=== PATIENT | male | born 1945 | race Caucasian/White ===

== ENCOUNTER 2017-11-16 09:45 | Outpatient (CLI) | payer MEDICARE, OTHER, SELFPAY | END 2017-11-16 10:00 | disposition home or self-care (01) | LOC: INF 09:57 | PROVIDERS: Family Provider Family Medicine; PCP Family Medicine; Visit Provider Internal Medicine | DX: Z45.2 Encounter for adjustment and management of vascular access device (principal) | CPT/HCPCS: 96523; J1642 ==

== ENCOUNTER 2017-12-13 08:44 | Outpatient (CLI) | payer MEDICARE, OTHER, SELFPAY ==
[2017-12-13 09:08] VITALS: BMI 29.5
[2017-12-13 10:14] LABS: Basophils # 0.1 K/mm3 (0-0.2); Basophils % 1.1 % (0.1-2.0); Eosinophils # 0.3 K/mm3 (0.0-0.4); Eosinophils % 4.1 % (0.1-12.0); Hematocrit 38.1 % (42.0-52.0); Hemoglobin 13.1 g/dL (14.1-18.0); Lymphocytes # 1.7 K/mm3 (0.7-4.5); Lymphocytes % 27.7 K/mm3 (10-50); Mean Corpuscular HGB Conc 34.3 g/dL (31.8-35.4); Mean Corpuscular Hemoglobin 29.9 pg (27.0-31.2); Mean Platelet Volume 7.3 fl (7.4-10.4); Monocytes # 0.5 K/mm3 (0.1-1.0); Monocytes % 8.7 % (1.7-9.3); Neutrophils # 3.6 K/mm3 (1.8-7.8); Neutrophils % 58.4 % (37.0-80.0); Platelet Count 143 K/mm3 (142-424); Red Blood Count 4.38 M/mm3 (4.60-6.20); Red Cell Distribution Width 14.6 % (11.5-17.5); White Blood Count 6.2 K/mm3 (4.8-10.8)
[2017-12-13 10:16] LABS: Chloride 104 mmol/L (98-107); Potassium 3.7 mmoL/L (3.5-5.1); Sodium 139 mmol/L (136-145)
[2017-12-13 10:17] LABS: Alanine Aminotransferase 25 U/L (12-78); Albumin/Globulin Ratio 1.2 (1.1-1.8); Anion Gap 13.7 mEq/L (5-15); Aspartate Amino Transferase 19 U/L (15-37); Bilirubin,Total 0.4 mg/dL (0.2-1.0); Blood Urea Nitrogen 21 mg/dL (7-18); Calcium 9.2 mg/dL (8.5-10.1); Carbon Dioxide 25 mmol/L (21.0-32.0); Creatinine Clearance Estimated 58 mL/min (0-300); Creatinine,Serum 1.38 mg/dL (0.70-1.30); Estimated Glomerular Filt Rate 51 ml/min (>60); GFR (African American) 62 ML/MIN (>60); Globulin 3.3 gm/dl (1.3-3.2); Glucose 201 mg/dL (74-106); Total Protein,Serum 7.3 gm/dL (6.4-8.2)
[2017-12-13 10:19] LABS: Alkaline Phosphatase 58 U/L (46-116)
--- NOTE | 2017-12-13 11:08 | CT_ITS ---
CT abdomen pelvis w con CLINICAL INDICATION: Follow-up lymphoma ITS.REASON: LYMPHOMA ORDERING PHYSICIAN: Dash Rizo MD PATIENT AGE: 72 years COMPARISON: 09/22/2016 TECHNIQUE: Axial images obtained with sagittal and coronal reformats. All CT scans at the facility use one or more dose reduction, viz: automated exposure control; ma/kV adjustment per patient size (including targeted exams where dose is matched to indication; i.e. head); or iterative reconstruction technique. PROCEDURE: Oral Contrast: Redicat IV Contrast: 75 mL's of Isovue-370. FINDINGS: The liver, spleen, adrenal glands, and pancreas have an unremarkable appearance. There are multiple gallstones. No hydronephrosis or renal mass. 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 Small nodes are present within the central mesenteric axis and do not appear significantly changed with the largest node measuring up to 22 x 13 mm in the right lower quadrant. No retroperitoneal adenopathy. There is diverticulosis of the descending and sigmoid colon. There is mild thickening of the bowel wall in the left lower quadrant of the junction of the descending and sigmoid colon. This may only be related to nondistention. No stranding of the pericolic fat noted at this area. Irregular bladder wall appears slightly thickened but could be due to nondistention. No pelvic mass or abnormal fluid collection. No intestinal obstruction or free air. No acute bony anomalies. IMPRESSION: 1. Overall stable CT appearance of the abdomen and pelvis. 2. Stable small lymph nodes in the mesentery's and right lower quadrant. 3. Cholelithiasis
--- NOTE | 2017-12-13 11:08 | CT_ITS ---
CT chest w con HISTORY: Follow-up lymphoma ITS.REASON: LYMPHOMA ORDERING PHYSICIAN: Dash Rizo MD PATIENT AGE: 72 years COMPARISON: 06/24/2017 TECHNIQUE: Axial images obtained following the administration of 75 mL of Isovue 370 . Sagittal, and coronal reformatted images are also generated and reviewed. All CT scans at the facility use one or more dose reduction, viz: automated exposure control; ma/kV adjustment per patient size (including targeted exams where dose is matched to indication; i.e. head); or iterative reconstruction technique. FINDINGS: There are no mediastinal or hilar mass evident. No mediastinal or hilar adenopathy. There is mild uniform thickening of the esophagus throughout the length of the thorax. Esophagitis is considered. Right subclavian Mediport catheter remains in place No effusions. Previously noted irregular opacity in the right lung base not significant changed and may be due to an area of postinflammatory fibrosis. A calcified granulomas present in the right lung base medially. A 3 mm nodule present in the right lung base posteriorly adjacent to some fibrotic changes. This was in previously noted area of pneumonia. Probably not significantly changed. Continued follow-up may confirm stability. There are degenerative changes in the thoracic spine. IMPRESSION: 1. Overall stable CT appearance of the chest compared to 06/24/2017 with postinflammatory scarring. 2. No evidence of recurrent adenopathy. 3. Diffuse thickening of the esophagus which may be related to esophagitis
== END 2017-12-13 11:30 | disposition home or self-care (01) ==
PROVIDERS: Family Provider Family Medicine; PCP Family Medicine; Visit Provider Internal Medicine
DX: C85.93 Non-Hodgkin lymphoma, unspecified, intra-abdominal lymph nodes (principal)
CPT/HCPCS: 71260; 74177; 80053; 85025; J1642; Q9967

== ENCOUNTER 2018-02-15 08:37 | Outpatient (CLI) | payer MEDICARE, OTHER, SELFPAY | END 2018-02-15 08:50 | disposition home or self-care (01) | LOC: INF 08:37 | PROVIDERS: Family Provider Family Medicine; PCP Family Medicine; Visit Provider Internal Medicine | DX: Z45.2 Encounter for adjustment and management of vascular access device (principal); C85.90 Non-Hodgkin lymphoma, unspecified, unspecified site | CPT/HCPCS: 96523; J1642 ==

== ENCOUNTER 2018-03-22 08:30 | Outpatient (CLI) | payer MEDICARE, OTHER, SELFPAY | END 2018-03-22 12:40 | disposition home or self-care (01) | LOC: INF 08:39 | PROVIDERS: Family Provider Family Medicine; PCP Family Medicine; Visit Provider Internal Medicine | DX: Z45.2 Encounter for adjustment and management of vascular access device (principal); C85.90 Non-Hodgkin lymphoma, unspecified, unspecified site | CPT/HCPCS: 96374; J1642 ==

== ENCOUNTER 2018-04-21 08:30 | Outpatient (CLI) | payer MEDICARE, OTHER, SELFPAY ==
[2018-04-21 08:39] VITALS: BMI 29.7
[2018-04-21 09:12] LABS: Basophils # 0.1 K/mm3 (0-0.2); Basophils % 1.1 % (0.1-2.0); Eosinophils # 0.2 K/mm3 (0.0-0.4); Hemoglobin 13.4 g/dL (14.1-18.0); Lymphocytes # 1.7 K/mm3 (0.7-4.5); Lymphocytes % 26.2 K/mm3 (10-50); Mean Corpuscular HGB Conc 34.2 g/dL (31.8-35.4); Mean Corpuscular Hemoglobin 29.7 pg (27.0-31.2); Mean Corpuscular Volume 86.8 fl (80-94); Mean Platelet Volume 7.3 fl (7.4-10.4); Monocytes # 0.5 K/mm3 (0.1-1.0); Monocytes % 7.5 % (1.7-9.3); Neutrophils # 3.9 K/mm3 (1.8-7.8); Neutrophils % 62.2 % (37.0-80.0); Platelet Count 137 K/mm3 (142-424); Red Cell Distribution Width 14.9 % (11.5-17.5); White Blood Count 6.3 K/mm3 (4.8-10.8)
[2018-04-21 09:22] LABS: Alanine Aminotransferase 32 U/L (12-78); Albumin Level 4.2 gm/dL (3.4-5.0); Albumin/Globulin Ratio 1.2 (1.1-1.8); Alkaline Phosphatase 47 U/L (46-116); Aspartate Amino Transferase 21 U/L (15-37); Bilirubin,Total 0.6 mg/dL (0.2-1.0); Blood Urea Nitrogen 29 mg/dL (7-18); Calcium 9.4 mg/dL (8.5-10.1); Carbon Dioxide 26 mmol/L (21.0-32.0); Chloride 102 mmol/L (98-107); Creatinine Clearance Estimated 58 mL/min (0-300); Estimated Glomerular Filt Rate 50 ml/min (>60); GFR (African American) 61 ML/MIN (>60); Globulin 3.4 gm/dl (1.3-3.2); Glucose 201 mg/dL (74-106); Sodium 136 mmol/L (136-145); Total Protein,Serum 7.6 gm/dL (6.4-8.2)
[2018-04-25 06:18] LABS: Cryptococcus Antigen Negative (Negative)
== END 2018-04-21 09:10 | disposition home or self-care (01) ==
LOC: INF 08:37
PROVIDERS: Family Provider Family Medicine; PCP Family Medicine; Visit Provider Internal Medicine
DX: B45.9 Cryptococcosis, unspecified (principal)
CPT/HCPCS: 80053; 85025; 86641; 87899; J1642

== ENCOUNTER 2018-05-31 08:53 | Outpatient (CLI) | payer MEDICARE, OTHER, SELFPAY | END 2018-05-31 08:59 | disposition home or self-care (01) | LOC: INF 08:53 | PROVIDERS: Visit Provider Internal Medicine Medical Oncology | DX: Z45.2 Encounter for adjustment and management of vascular access device (principal); C85.10 Unspecified B-cell lymphoma, unspecified site | CPT/HCPCS: 96523; J1642 ==

== ENCOUNTER 2018-07-12 08:40 | Outpatient (CLI) | payer MEDICARE, OTHER, SELFPAY ==
[2018-07-12 08:35] VITALS: BP 155/73; PULSE 78; RESP 20; TEMP 36.4; O2SAT 97
== END 2018-07-12 08:55 | disposition home or self-care (01) ==
PROVIDERS: PCP Family Medicine; Visit Provider Internal Medicine Medical Oncology
DX: Z45.2 Encounter for adjustment and management of vascular access device (principal)
CPT/HCPCS: 96523; J1642

== ENCOUNTER 2018-08-23 08:26 | Outpatient (CLI) | payer MEDICARE, OTHER, SELFPAY | END 2018-08-23 08:51 | disposition home or self-care (01) | LOC: INF 08:26 | PROVIDERS: Visit Provider Internal Medicine Medical Oncology | DX: Z45.2 Encounter for adjustment and management of vascular access device (principal) | CPT/HCPCS: 96523; J1642 ==

== ENCOUNTER 2018-10-02 08:38 | Outpatient (CLI) | payer MEDICARE, OTHER, SELFPAY ==
[2018-10-02 08:22] VITALS: BMI 30.7
[2018-10-02 08:45] LABS: Basophils # 0.1 K/mm3 (0-0.2); Basophils % 1.1 % (0.1-2.0); Eosinophils # 0.2 K/mm3 (0.0-0.4); Hematocrit 37.1 % (42.0-52.0); Hemoglobin 13.1 g/dL (14.1-18.0); Lymphocytes # 1.6 K/mm3 (0.7-4.5); Lymphocytes % 27.4 % (10-50); Mean Corpuscular HGB Conc 35.4 g/dL (31.8-35.4); Mean Corpuscular Hemoglobin 30.1 pg (27.0-31.2); Mean Corpuscular Volume 85.2 fl (80-94); Mean Platelet Volume 7.2 fl (7.4-10.4); Monocytes # 0.5 K/mm3 (0.1-1.0); Neutrophils # 3.5 K/mm3 (1.8-7.8); Neutrophils % 60.5 % (37.0-80.0); Platelet Count 159 K/mm3 (142-424); Red Blood Count 4.35 M/mm3 (4.60-6.20); Red Cell Distribution Width 14.6 % (11.5-17.5); White Blood Count 5.8 K/mm3 (4.8-10.8)
[2018-10-02 08:59] LABS: Alanine Aminotransferase 35 U/L (12-78); Albumin Level 3.9 gm/dL (3.4-5.0); Albumin/Globulin Ratio 1.2 (1.1-1.8); Alkaline Phosphatase 44 U/L (46-116); Anion Gap 14.7 mEq/L (5-15); Aspartate Amino Transferase 23 U/L (15-37); Bilirubin,Total 0.4 mg/dL (0.2-1.0); Blood Urea Nitrogen 22 mg/dL (7-18); Calcium 8.9 mg/dL (8.5-10.1); Carbon Dioxide 25 mmol/L (21.0-32.0); Chloride 101 mmol/L (98-107); Creatinine Clearance Estimated 61 mL/min (50-200); Creatinine,Serum 1.37 mg/dL (0.70-1.30); Estimated Glomerular Filt Rate 51 ml/min (>60); GFR (African American) 62 ML/MIN (>60); Globulin 3.3 gm/dl (1.3-3.2); Glucose 229 mg/dL (74-106); Potassium 3.7 mmoL/L (3.5-5.1); Sodium 137 mmol/L (136-145); Total Protein,Serum 7.2 gm/dL (6.4-8.2)
--- NOTE | 2018-10-02 09:05 | CT_ITS ---
CT chest w con HISTORY: Follow-up lymphoma ITS.REASON: LYMPHOMA ORDERING PHYSICIAN: Stella Rosales MD PATIENT AGE: 72 years COMPARISON: 10/26/2016 TECHNIQUE: Axial images obtained following the administration of 75 mL of Optiray 350 . Sagittal, and coronal reformatted images are also generated and reviewed. All CT scans at the facility use one or more dose reduction, viz: automated exposure control, ma/kV adjustment per patient size (including targeted exams where dose is matched to indication, i.e. head), or iterative reconstruction technique. FINDINGS: Mediport catheter present in the right subclavian approach. No evidence of aortic aneurysm, dissection, or central pulmonary embolus. Coronary calcifications are present. There is mild thickening of the distal esophagus which is nonspecific and could be due to reflux enteritis. No mediastinal or hilar adenopathy. There are a few small mediastinal lymph nodes are unchanged. No axillary adenopathy. Scattered fibrotic changes within the lungs. The parenchymal opacity noted previously in the right lung base posteriorly is somewhat less apparent. Residual density which is at that area now may be related to scar. Parenchymal opacity in the right middle lobe is also somewhat less apparent but still persists. No new abnormalities are evident. No effusions or infiltrates. No acute bony findings. There are degenerative changes in the thoracic spine. IMPRESSION: 1. No mediastinal or hilar or axillary adenopathy. 2. Parenchymal opacity previously described in the right middle lobe and right lower lobe have shown some improvement with some minimal residual density at these areas which could be due to some residual scarring. 3. No new abnormalities apparent
--- NOTE | 2018-10-02 09:05 | CT_ITS ---
CT abdomen pelvis w con CLINICAL INDICATION: Follow-up lymphoma ITS.REASON: LYMPHOMA ORDERING PHYSICIAN: Stella Rosales MD PATIENT AGE: 72 years COMPARISON: 12/13/2017 TECHNIQUE: Axial images obtained with sagittal and coronal reformats. All CT scans at the facility use one or more dose reduction, viz: automated exposure control, ma/kV adjustment per patient size (including targeted exams where dose is matched to indication, i.e. head), or iterative reconstruction technique. PROCEDURE: Oral Contrast: Redicat IV Contrast: 75 mL Isovue-370 performed in conjunction with chest CT. FINDINGS: There are multiple layering gallstones. The liver, adrenal glands and pancreas, and kidneys have an unremarkable appearance. There is a duplex left renal collecting system. There is mild splenomegaly at 14 cm unchanged. There are scattered small retroperitoneal and mesenteric lymph nodes which are not significant changed. Right lower quadrant mesenteric nodes measure up to 2.1 x 1.3 cm not significant change. No new areas of adenopathy are evident. There is diverticulosis of the sigmoid colon. No evidence of diverticulitis or appendicitis. No acute bony findings. IMPRESSION: 1. Overall stable CT appearance of the abdomen and pelvis. 2. Mildly prominent mesenteric lymph nodes are once again noted in the right lower quadrant but are unchanged with no new areas of adenopathy evident.
== END 2018-10-02 09:45 | disposition home or self-care (01) ==
LOC: RAD 08:38
PROVIDERS: PCP Family Medicine; Visit Provider Internal Medicine Medical Oncology
DX: C85.93 Non-Hodgkin lymphoma, unspecified, intra-abdominal lymph nodes (principal)
CPT/HCPCS: 71260; 74177; 80053; 85025; J1642; Q9967

== ENCOUNTER 2018-11-13 08:50 | Outpatient (CLI) | payer MEDICARE, OTHER, SELFPAY | END 2018-11-13 09:25 | disposition home or self-care (01) | LOC: INF 08:50 | PROVIDERS: Visit Provider Internal Medicine Medical Oncology | DX: Z45.2 Encounter for adjustment and management of vascular access device (principal); C85.10 Unspecified B-cell lymphoma, unspecified site | CPT/HCPCS: 96523; J1642 ==

== ENCOUNTER → 2018-12-25 08:46 | Outpatient (CLI) | payer MEDICARE, OTHER, SELFPAY | PROVIDERS: Visit Provider Internal Medicine Medical Oncology | DX: C85.10 Unspecified B-cell lymphoma, unspecified site (principal); Z45.2 Encounter for adjustment and management of vascular access device | CPT/HCPCS: 96523; J1642 ==

== ENCOUNTER → 2019-02-05 08:15 | Outpatient (CLI) | payer MEDICARE, OTHER, SELFPAY | PROVIDERS: Visit Provider Internal Medicine Medical Oncology | DX: Z45.2 Encounter for adjustment and management of vascular access device (principal) | CPT/HCPCS: 96523; J1642 ==

== ENCOUNTER 2019-03-19 09:17 | Outpatient (CLI) | payer MEDICARE, OTHER, SELFPAY ==
[2019-03-19 09:42] VITALS: BP 150/88; PULSE 69; RESP 18; TEMP 36.6; O2SAT 97
== END 2019-03-19 09:45 | disposition home or self-care (01) ==
LOC: INF 09:17
PROVIDERS: Visit Provider Internal Medicine Medical Oncology
DX: Z45.2 Encounter for adjustment and management of vascular access device (principal); C85.10 Unspecified B-cell lymphoma, unspecified site
CPT/HCPCS: 96523; J1642

== ENCOUNTER 2019-04-13 09:29 | Outpatient (CLI) | payer MEDICARE, OTHER, SELFPAY ==
[2019-04-13 08:44] VITALS: BMI 30.7
[2019-04-13 09:08] LABS: Basophils # 0.1 K/mm3 (0-0.2); Basophils % 1.5 % (0.1-2.0); Eosinophils # 0.2 K/mm3 (0.0-0.4); Eosinophils % 3.5 % (0.1-12.0); Hematocrit 39.6 % (42.0-52.0); Hemoglobin 13.5 g/dL (14.1-18.0); Lymphocytes # 1.7 K/mm3 (0.7-4.5); Lymphocytes % 29.5 % (10-50); Mean Corpuscular HGB Conc 34.2 g/dL (31.8-35.4); Mean Corpuscular Hemoglobin 30.7 pg (27.0-31.2); Mean Corpuscular Volume 89.9 fl (80-94); Mean Platelet Volume 7.7 fl (7.4-10.4); Monocytes # 0.5 K/mm3 (0.1-1.0); Monocytes % 8.9 % (1.7-9.3); Neutrophils # 3.2 K/mm3 (1.8-7.8); Neutrophils % 56.6 % (37.0-80.0); Platelet Count 137 K/mm3 (142-424); Red Cell Distribution Width 14.7 % (11.5-17.5); White Blood Count 5.7 K/mm3 (4.8-10.8)
[2019-04-13 09:20] LABS: Alanine Aminotransferase 30 U/L (12-78); Albumin Level 4.1 gm/dL (3.4-5.0); Albumin/Globulin Ratio 1.3 (1.1-1.8); Alkaline Phosphatase 43 U/L (46-116); Anion Gap 15.3 mEq/L (5-15); Aspartate Amino Transferase 21 U/L (15-37); Bilirubin,Total 0.5 mg/dL (0.2-1.0); Blood Urea Nitrogen 26 mg/dL (7-18); Calcium 8.6 mg/dL (8.5-10.1); Carbon Dioxide 24 mmol/L (21.0-32.0); Chloride 102 mmol/L (98-107); Creatinine Clearance Estimated 55 mL/min (50-200); Creatinine,Serum 1.51 mg/dL (0.70-1.30); Estimated Glomerular Filt Rate 46 ml/min (>60); GFR (African American) 55 ML/MIN (>60); Globulin 3.2 gm/dl (1.3-3.2); Glucose 237 mg/dL (74-106); Potassium 4.3 mmoL/L (3.5-5.1); Sodium 137 mmol/L (136-145); Total Protein,Serum 7.3 gm/dL (6.4-8.2)
--- NOTE | 2019-04-13 09:35 | CT_ITS ---
PROCEDURE: CT CHEST W CON CLINICAL HISTORY: LYMPHOMA COMPARISON: 12/13/2017 CT chest TECHNIQUE: 50 cc of Optiray 350 contrast. Axial images obtained with sagittal and coronal reformats. All CT scans at the facility use one or more dose reduction, viz: automated exposure control, ma/kV adjustment per patient size (including targeted exams where dose is matched to indication, i.e. head), or iterative reconstruction technique. FINDINGS: Airway structures are patent without pleural effusion or pneumothorax. There is a stable short strand of increased density at the base of the right middle lobe adjacent to the dome of the right hemidiaphragm. There is a benign punctate calcified granuloma in the right lower lobe. The remainder of the lung grewal are clear. Heart size is normal and there are coronary artery calcified plaques. There are some punctate and partially fatty benign-appearing mediastinal lymph nodes which are stable. There are no enlarged lymph nodes. Hilar areas are normal. Axillary areas are unremarkable. IMPRESSION: Right lung base linear scarring. No abnormal adenopathy. Coronary artery calcified plaques. Dictated by: Curt Bob 04/13/2019 11:05 Electronically signed by Curt Bob in [place] 04/13/2019 11:05
--- NOTE | 2019-04-13 09:35 | CT_ITS ---
PROCEDURE: CT ABDOMEN PELVIS W CON CLINICAL HISTORY: LYMPHOMA COMPARISON: [facility] CT abdomen pelvis w con from 10/02/2018 TECHNIQUE: Axial images obtained with sagittal and coronal reformats. All CT scans at the facility use one or more dose reduction, viz: automated exposure control, ma/kV adjustment per patient size (including targeted exams where dose is matched to indication, i.e. head), or iterative reconstruction technique. FINDINGS: Liver, the pancreas, and adrenal glands are normal. Spleen is somewhat smaller measuring 13.4 centimeters in length. Again seen are the gallstones without pericholecystic fluid or biliary dilatation. Kidneys are normal. There are aortic calcified plaques without dilatation. Images 72 through 78 show some thickening of the wall of the tip of the cecum. Appendix is normal. There is a right lower quadrant lymph node in this area measuring 1.3 centimeters and on prior study measured 1.0 centimeter. There are some stable small central mesenteric lymph nodes with the short axis diameter of 6.5 millimeters involving 1 of the larger mesenteric lymph nodes. The remainder of the GI tract is unremarkable. There is no ascites or free air. Pelvis is unremarkable. There is no acute osseous process. IMPRESSION: Decreased splenomegaly. Uncomplicated cholelithiasis. Stable small mesenteric lymph nodes. Cecal wall thickening is nonspecific. A mucosal neoplasm is not ruled out and therefore suggest either further clinical the evaluation such as colonoscopy or at least short-term three-month follow-up CT scan. There is a enlarging right lower quadrant lymph node in this area which could be related to patient's lymphoma although this could also occurr with a cecal neoplasm. Dictated by: Curt Bob 04/13/2019 11:21 Electronically signed by Curt Bob in [place] 04/13/2019 11:21
== END 2019-04-13 10:30 | disposition home or self-care (01) ==
LOC: INF 09:29
PROVIDERS: PCP Family Medicine; Visit Provider Internal Medicine Medical Oncology
DX: C18.9 Malignant neoplasm of colon, unspecified (principal); C85.93 Non-Hodgkin lymphoma, unspecified, intra-abdominal lymph nodes
CPT/HCPCS: 71260; 74177; 80053; 85025; J1642; Q9967

== ENCOUNTER 2019-07-31 08:43 | Outpatient (CLI) | payer MEDICARE, OTHER, SELFPAY ==
[2019-07-31 08:33] VITALS: BMI 29.7
[2019-07-31 09:01] LABS: Basophils # 0.1 K/mm3 (0-0.2); Basophils % 1.2 % (0.1-2.0); Eosinophils # 0.3 K/mm3 (0.0-0.4); Eosinophils % 4.2 % (0.1-12.0); Hematocrit 40.5 % (42.0-52.0); Lymphocytes % 31.6 % (10-50); Mean Corpuscular HGB Conc 34.5 g/dL (31.8-35.4); Mean Corpuscular Hemoglobin 30.2 pg (27.0-31.2); Mean Corpuscular Volume 87.4 fl (80-94); Mean Platelet Volume 7.5 fl (7.4-10.4); Monocytes # 0.5 K/mm3 (0.1-1.0); Monocytes % 7.7 % (1.7-9.3); Neutrophils # 3.5 K/mm3 (1.8-7.8); Neutrophils % 55.3 % (37.0-80.0); Platelet Count 148 K/mm3 (142-424); Red Blood Count 4.64 M/mm3 (4.60-6.20); Red Cell Distribution Width 14.5 % (11.5-17.5); White Blood Count 6.3 K/mm3 (4.8-10.8)
--- NOTE | 2019-07-31 09:07 | CT_ITS ---
PROCEDURE: CT CHEST W CON CLINCAL INDICATION: H/O LYMPHOMA COMPARISON: CT CHEST W CON from 04/13/2019 CT ABDOMEN PELVIS W CON from 07/31/2019 TECHNIQUE: IV Contrast: 75ml Optiray 350 Axial images obtained with sagittal and coronal reformats. All CT scans at the facility use one or more dose reduction, viz: automated exposure control, ma/kV adjustment per patient size (including targeted exams where dose is matched to indication, i.e. head), or iterative reconstruction technique. FINDINGS: HEART,AORTA,PULMONARY ARTERIES the heart is not enlarged. There are coronary calcifications. MEDIASTINAL AND HILAR STRUCTURES: No mediastinal or hilar mass evident. No dominant adenopathy. A stable calcified subcarinal lymph node is noted. LUNGS: There is a small amount of scarring in the posterior medial right lower lobe. Calcified granuloma is seen in the right lower lobe. There is no acute infiltrate. PLEURAL SPACES: No significant effusion. No evidence of pneumothorax. BONY STRUCTURES: No acute bony abnormalities apparent. LYMPH NODES: No enlarged lymph nodes evident. UPPER ABDOMEN: Unremarkable. ADDITIONAL FINDINGS: There is circumferential wall thickening of the esophagus similar to the previous exam and there is oral contrast within the lumen of the esophagus. Gastroesophageal reflux could cause this appearance. IMPRESSION: Stable appearance of the thorax compared to 04/13/2019. No acute cardiopulmonary finding or evidence of active lymphoma. Coronary arterial calcifications. Dictated by: Abdi Paz 07/31/2019 11:12 Electronically signed by Abdi Paz in [place] 07/31/2019 11:12
--- NOTE | 2019-07-31 09:07 | CT_ITS ---
PROCEDURE: CT ABDOMEN PELVIS W CON CLINICAL INDICATION: H/O LYMPHOMA COMPARISON: CT ABDOMEN PELVIS W CON from 04/13/2019 TECHNIQUE: IV Contrast: 75ML OPTIRAY 350 Oral Contrast 20ml Gastroview Axial images obtained with sagittal and coronal reformats. All CT scans at the facility use one or more dose reduction, viz: automated exposure control, ma/kV adjustment per patient size (including targeted exams where dose is matched to indication, i.e. head), or iterative reconstruction technique. FINDINGS: LOWER THORAX: There is circumferential wall thickening of the distal esophagus. This is similar to the previous exam. Esophagitis would have to be considered. A small amount of coronary calcification is suggested. ABDOMEN & PELVIS: There is fatty infiltration of liver. There is cholelithiasis without ancillary findings of acute cholecystitis. Calcified splenic granuloma is noted. There is mild splenomegaly spleen at least 14.1 centimeters pole to pole similar to previous exam. Sub centimeter cortical cysts of the left kidney are noted. The liver, spleen, pancreas, adrenal glands, and kidneys show no acute finding. There is no change in cecal wall thickening. There is diverticulosis greatest in the left colon and there is some wall thickening. The areas of colonic wall thickening are associated with poor luminal distention and it is possible wall thickening is nonpathological related to non distention. No intestinal obstruction or free air. No evidence of appendicitis or diverticulitis. On the axial images there has been an apparent increase in size of previously reported right lower quadrant lymph node appearing to contain some dystrophic calcification. The node now measures up to 2.1 centimeters on image 65 series 5. It was 1.3 centimeters previously. This is not changed with certainty on the coronal images. Other smaller nodes adjacent nodes are not changed. Malignant lymphadenopathy unfortunately is not excluded. Other smaller mesenteric nodes appear stable. There is prostate enlargement with some mass effect upon the base of the urinary bladder. correlation with digital rectal exam and PSA is recommended. No pelvic mass, abnormal fluid collection, or focal inflammatory change of the pelvis. No acute bony anomalies. IMPRESSION: Possible increase in size of right lower quadrant lymph node now 2.1 centimeters. It was 1.3 centimeters. Active inflammatory or neoplastic process would have to be considered. Other mesenteric lymph nodes are also noted not definitely changed. PET imaging may be useful to further evaluate this patient. Relatively stable appearance of the cecal and esophageal wall thickening seen previously. Diverticulosis. Dictated by: Abdi Paz/21/2020 10:59 Electronically signed by Abdi Paz in [place] 07/31/2019 10:59
[2019-07-31 09:11] LABS: Alanine Aminotransferase 34 U/L (12-78); Albumin Level 4.2 gm/dL (3.4-5.0); Albumin/Globulin Ratio 1.3 (1.1-1.8); Alkaline Phosphatase 45 U/L (46-116); Anion Gap 15.9 mEq/L (5-15); Aspartate Amino Transferase 22 U/L (15-37); Bilirubin,Total 0.7 mg/dL (0.2-1.0); Blood Urea Nitrogen 29 mg/dL (7-18); Calcium 9.3 mg/dL (8.5-10.1); Carbon Dioxide 25 mmol/L (21.0-32.0); Chloride 101 mmol/L (98-107); Creatinine Clearance Estimated 47 mL/min (50-200); Creatinine,Serum 1.69 mg/dL (0.70-1.30); Estimated Glomerular Filt Rate 40 ml/min (>60); GFR (African American) 49 ML/MIN (>60); Globulin 3.2 gm/dl (1.3-3.2); Glucose 218 mg/dL (74-106); Potassium 3.9 mmoL/L (3.5-5.1); Sodium 138 mmol/L (136-145); Total Protein,Serum 7.4 gm/dL (6.4-8.2)
== END 2019-07-31 10:30 | disposition home or self-care (01) ==
PROVIDERS: PCP Family Medicine; Visit Provider Internal Medicine Medical Oncology
DX: Z85.72 Personal history of non-Hodgkin lymphomas (principal)
CPT/HCPCS: 71260; 74177; 80053; 85025; J1642; Q9967

== ENCOUNTER → 2019-08-10 11:30 | Outpatient (CLI) | payer MEDICARE, OTHER, SELFPAY | PROVIDERS: Visit Provider Internal Medicine Medical Oncology | DX: C85.89 Other specified types of non-Hodgkin lymphoma, extranodal and solid organ sites (principal); Z12.5 Encounter for screening for malignant neoplasm of prostate | CPT/HCPCS: 36415; G0103 ==

== ENCOUNTER 2019-09-11 08:11 | Outpatient (CLI) | payer MEDICARE, OTHER, SELFPAY | END 2019-09-11 08:38 | disposition home or self-care (01) | LOC: INF 08:11 | PROVIDERS: Visit Provider Internal Medicine Medical Oncology | DX: Z45.2 Encounter for adjustment and management of vascular access device (principal); C18.9 Malignant neoplasm of colon, unspecified | CPT/HCPCS: 96523; J1642 ==

== ENCOUNTER 2019-10-23 10:43 | Outpatient (CLI) | payer MEDICARE, OTHER, SELFPAY ==
[2019-10-23 11:04] VITALS: BP 154/72; PULSE 84; RESP 18; TEMP 36.2; O2SAT 98
== END 2019-10-23 11:10 | disposition home or self-care (01) ==
LOC: INF 10:43
PROVIDERS: Visit Provider Internal Medicine Medical Oncology
DX: Z45.2 Encounter for adjustment and management of vascular access device (principal)
CPT/HCPCS: 96523; J1642

== ENCOUNTER 2019-12-04 08:21 | Outpatient (CLI) | payer MEDICARE, OTHER, SELFPAY | END 2019-12-04 08:25 | disposition home or self-care (01) | LOC: INF 08:21 | PROVIDERS: Visit Provider Internal Medicine Medical Oncology | DX: C18.9 Malignant neoplasm of colon, unspecified (principal); Z45.2 Encounter for adjustment and management of vascular access device | CPT/HCPCS: 96523; J1642 ==

== ENCOUNTER 2020-01-14 08:20 | Outpatient (CLI) | payer MEDICARE, OTHER, SELFPAY | END 2020-01-14 08:35 | disposition home or self-care (01) | LOC: INF 08:20 | PROVIDERS: Visit Provider Internal Medicine Medical Oncology | DX: Z45.2 Encounter for adjustment and management of vascular access device (principal) | CPT/HCPCS: 96523; J1642 ==

== ENCOUNTER 2020-02-21 10:47 | Outpatient (CLI) | payer MEDICARE, OTHER, SELFPAY ==
[2020-02-21 08:28] VITALS: BMI 31.1
[2020-02-21 08:44] LABS: Basophils # 0.1 K/mm3 (0-0.2); Basophils % 0.9 % (0.1-2.0); Eosinophils # 0.2 K/mm3 (0.0-0.4); Eosinophils % 3.9 % (0.1-12.0); Hematocrit 36.4 % (42.0-52.0); Hemoglobin 13.4 g/dL (14.1-18.0); Lymphocytes # 2.3 K/mm3 (0.7-4.5); Lymphocytes % 37.3 % (10-50); Mean Corpuscular HGB Conc 36.9 g/dL (31.8-35.4); Mean Corpuscular Hemoglobin 32.3 pg (27.0-31.2); Mean Corpuscular Volume 87.6 fl (80-94); Mean Platelet Volume 7.8 fl (7.4-10.4); Monocytes # 0.5 K/mm3 (0.1-1.0); Monocytes % 8.7 % (1.7-9.3); Neutrophils # 3.1 K/mm3 (1.8-7.8); Neutrophils % 49.2 % (37.0-80.0); Platelet Count 137 K/mm3 (142-424); Red Blood Count 4.16 M/mm3 (4.60-6.20); Red Cell Distribution Width 14.8 % (11.5-17.5); White Blood Count 6.2 K/mm3 (4.8-10.8)
[2020-02-21 08:48] LABS: Chloride 105 mmol/L (98-107); Sodium 138 mmol/L (136-145)
[2020-02-21 08:51] LABS: Alanine Aminotransferase 29 U/L (12-78); Albumin Level 4.5 g/dl (3.5-5.0); Albumin/Globulin Ratio 1.6 (1.1-1.8); Alkaline Phosphatase 48 U/L (38-126); Aspartate Amino Transferase 35 U/L (17-59); Bilirubin,Total 0.5 mg/dl (0.2-1.3); Blood Urea Nitrogen 22 mg/dl (9-20); Calcium 9.7 mg/dl (8.4-10.2); Carbon Dioxide 23 mmol/L (22.0-30.0); Creatinine Clearance Estimated 55 mL/min (50-200); Estimated Glomerular Filt Rate 46 ml/min (>60); GFR (African American) 56 ML/MIN (>60); Globulin 2.8 g/dL (1.3-3.2); Glucose 188 mg/dl (74-100); Total Protein,Serum 7.3 g/dl (6.3-8.2)
--- NOTE | 2020-02-21 10:55 | CT_ITS ---
PROCEDURE: CT ABDOMEN PELVIS W CON CLINICAL INDICATION: LUNG CANCER Follow-up lymphoma COMPARISON: CT CT ABDOMEN PELVIS W CON from 07/31/[address] CHEST W CON from 02/21/2020 TECHNIQUE: IV Contrast: 75ML OPTIRAY 350 Oral Contrast None Axial images obtained with sagittal and coronal reformats. All CT scans at the facility use one or more dose reduction, viz: automated exposure control, ma/kV adjustment per patient size (including targeted exams where dose is matched to indication, i.e. head), or iterative reconstruction technique. FINDINGS: LOWER THORAX: No acute finding ABDOMEN & PELVIS: There is thickening of the distal esophagus. This is nonspecific and could be due to nondistention or soft guidance. There are multiple gallstones present. No focal liver lesion. There is splenomegaly at 15 cm. The adrenal glands, and pancreas have an unremarkable appearance. There is mild prominence of the renal collecting system on both sides not significantly changed. There is a duplex bilateral. No renal or ureteral calculi. No adenopathy. There are few small residual nodes in the mesenteries the largest of which is in the right lower quadrant measuring approximately 2 cm previously measuring 2.2 cm. There is diverticulosis of the sigmoid colon. There is some minimal thickening of the sigmoid colon in the left lower quadrant nonspecific and may be due to nondistention. No evidence of diverticulitis or appendicitis. There are degenerative changes of the lumbar spine. Bilateral pars defect is present at L5. IMPRESSION: Overall stable CT appearance of the abdomen. No evidence of recurrence lymphoma Mild thickening of the distal esophagus nonspecific Dictated by: Farhan Guerrero MD 02/22/2020 10:45 Farhan Guerrero MD in [place] 02/22/2020 10:45
--- NOTE | 2020-02-21 10:55 | CT_ITS ---
PROCEDURE: CT CHEST W CON CLINCAL INDICATION: LUNG CANCER Follow-up lymphoma COMPARISON: CT CT CHEST W CON from 07/31/[address] ABDOMEN PELVIS W CON from 02/21/2020 TECHNIQUE: IV Contrast: 75ml Optiray 350 Axial images obtained with sagittal and coronal reformats. All CT scans at the facility use one or more dose reduction, viz: automated exposure control, ma/kV adjustment per patient size (including targeted exams where dose is matched to indication, i.e. head), or iterative reconstruction technique. FINDINGS: HEART AND MEDIASTINAL STRUCTURES: No mediastinal or hilar adenopathy. Coronary artery calcifications are present. LUNGS AND PLEURAL SPACES: There are minimal atelectatic/fibrotic change in the right lung base medially as before no suspicious nodules. No lobar consolidation or collapse. BONY STRUCTURES: Degenerative changes thoracic spine UPPER ABDOMEN: There is mild nonspecific thickening of the esophagus which could be due to nondistention or soft guidance. ADDITIONAL FINDINGS: No other significant abnormalities. IMPRESSION: Stable CT appearance of the chest. No evidence of recurrence lymphoma Mild nonspecific thickening of the esophagus which could be due to nondistention or esophagitis Dictated by: Farhan Guerrero MD 02/22/2020 10:32 Farhan Guerrero MD in [place] 02/22/2020 10:33
== END 2020-02-21 11:25 | disposition home or self-care (01) ==
LOC: RAD 10:48
PROVIDERS: PCP Family Medicine; Visit Provider Internal Medicine Medical Oncology
DX: C85.10 Unspecified B-cell lymphoma, unspecified site (principal); Z03.89 Encounter for observation for other suspected diseases and conditions ruled out
CPT/HCPCS: 71260; 74177; 80053; 85025; J1642; Q9967

== ENCOUNTER → 2020-02-25 11:47 | Outpatient (CLI) | payer MEDICARE, OTHER, SELFPAY ==
[2020-02-25 12:45] LABS: Iron 105 ug/dL (49-181)
[2020-02-25 12:54] LABS: Total Iron Binding Capacity 371 ug/dL (261-462)
[2020-02-25 13:20] LABS: Ferritin 115 ng/ml (17.9-464)
[2020-02-26 14:10] LABS: Vitamin B12 458 pg/mL (232-1245)
[2020-02-26 15:10] LABS: Albumin 4.6 g/dL (2.9-4.4); Alpha-1-Globulin 0.3 g/dL (0.0-0.4); Alpha-2-Globulin 1.2 g/dL (0.4-1.0); Free Lambda Lt Chains 14.6 mg/L (5.7-26.3); Immunoglobulin A, Qn 163 mg/dL (61-437); Immunoglobulin G, Qn 845 mg/dL (603-1613); Immunoglobulin M, Qn 31 mg/dL (15-143); Protein, Total 8.1 g/dL (6.0-8.5)
== END ==
PROVIDERS: Visit Provider Internal Medicine Medical Oncology
DX: D50.9 Iron deficiency anemia, unspecified (principal); C85.90 Non-Hodgkin lymphoma, unspecified, unspecified site
CPT/HCPCS: 36415; 82607; 82728; 82784; 83540; 83550; 83883; 84155; 84165; 86334

== ENCOUNTER → 2020-03-31 07:59 | Outpatient (CLI) | payer MEDICARE, OTHER, SELFPAY ==
[2020-03-31 09:38] LABS: Coronavirus 19 IgG Antibody Negative (Negative); Coronavirus 19 IgM Antibody Negative (Negative)
== END ==
PROVIDERS: Visit Provider Surgery
DX: Z01.89 Encounter for other specified special examinations (principal); Z13.810 Encounter for screening for upper gastrointestinal disorder
CPT/HCPCS: 36415; 86328

== ENCOUNTER 2020-04-01 06:35 | Day surgery (SDC) | payer MEDICARE, OTHER, SELFPAY ==
[2020-03-31 13:28] VITALS: BMI 31.9
[2020-04-01 06:56] VITALS: BP 174/75; PULSE 93; RESP 18; TEMP 36.3; O2SAT 98
[2020-04-01 07:13] LABS: POC Glucose,Bedside 195 (70-110)
--- NOTE | 2020-04-01 07:17 | [facility].ANESCL ---
[facility] Anesthesia Checklist - Patient Identification Patient Identification: Arm Band - Structural Data Admitted From: Home Planned Operative Procedure/s: egd Consent for Planned Operative Procedure(s) Verified: Yes Verified Documents: Surgical Consent, History and Physical - NPO Status Verified Time NPO: 00:00 - Additional verifications Anesthesia Reactions: No - Airway Assessment C-Spine Mobility Assessed: Yes (mp2) TMJ Mobility Assessed: Yes Dentition: Edentulous - Neurological Assessment Level of Consciousness: Awake, Alert - Anesthesia Plan Anesthesia Risk discussed: Yes Anesthesia Plan: Verified ASA Class: III Anesthesia Type: MAC [facility] History I have reviewed the patient's past medical history: Yes Medical History: Reports:: Cancer (lymphoma), Diabetes Mellitus Type 2, Gastroesophageal Reflux Disease(GERD), Hyperlipidemia, Hypertension Denies:: Diabetes Mellitus Type 1, Internal Pacemaker, MRSA, Seizures *Have you ever received a pneumonia vaccine?: Yes *Have you received a flu vaccine this season?: No Other Medical History: Reports: Arthritis Anesthesia experience/problems:: nac Laterality Cases: Left: Arthroscopy Knee Other Surgeries: Yes: Colonoscopy, Other. No: Pacemaker Amputation: No Fractures: No - *Social History Last grade of school completed: High school graduate Smoking Status: Light tobacco smoker Tobacco Type: cigars # Packs/Day (cigarettes): 1 #Yrs smoked (if former smoker): 40 Alcohol Intake: never Substance Use Type: denies use *Occupational Status:: retired Housing: house Household Members: spouse *Travel in the last 8 weeks: None Family Hx:: Cancer, Heart Attack, Hypertension
[2020-04-01 07:27] VITALS: O2SAT 98
--- NOTE | 2020-04-01 07:27 | HMH.SCOPE ---
- Procedure: Date: 04/01/20 Patient Date of :: 1945 Procedure Performed:: Esophagogastroduodenoscopy with biopsies Indications:: Patient is a 74-year-old male referred by Dr. Rosales for possible upper endoscopy. Patient has a history of lymphoma. There was questionable lesion noted on previous CT scan imaging in the cecum and I had performed colonoscopy on him on 05/22/2019. Cecum was unremarkable but he did have some tubular adenomas removed. He has been followed by oncology regularly and recently underwent follow up imaging which revealed findings of possible thickening of the distal esophagus. This was felt that it could be nondistention however. But the patient has had some symptoms of belching and epigastric pain. He is also had some mild anemia which may be secondary to renal insufficiency. He does state that he has a hiatal hernia. He denies any melena. Performing Provider:: Keith Sandhu MD Referring Provider:: Stella Rosales Sedation:: MAC sedation Procedure:: Patient was taken to endoscopy procedure room. He was positioned in a lateral decubitus position. Adequate intravenous sedation was achieved with anesthesia titration of propofol. Olympus endoscope was inserted via the oropharynx. Esophagus was traversed. Esophagus was mildly tortuous. Gastroesophageal junction was encountered at approximately 40 cm from the incisors. There was minor stenosis but no mass or Schatzki's ring noted. Stomach was cannulated and insufflated. Retroflexion revealed no evidence of any appreciable hiatal hernia. He has some diffuse nonerosive gastritis. Gastric mucosal biopsy was obtained for CLOtest for H. pylori. Additional gastric biopsies were obtained for histopathologic analysis. Pylorus was traversed. Duodenum was unremarkable. Endoscope was withdrawn into the distal esophagus and several biopsies were obtained at the gastroesophageal junction. A couple of distal esophageal biopsies were obtained. Endoscope was withdrawn. Findings:: Minor luminal narrowing at the gastroesophageal junction without Schatzki's ring or mass lesion Diffuse nonerosive gastritis Recommendations:: No mass noted at the gastroesophageal junction. Follow-up on biopsies. Treat H. pylori if indicated. Complications:: None immediately apparent Estimated blood obtained (mL): 1
[2020-04-01 07:45] VITALS: BP 110/63; PULSE 79; RESP 16; TEMP 36.2; O2SAT 91
[2020-04-01 07:55] VITALS: BP 116/68; PULSE 64; RESP 16; TEMP 36.2; O2SAT 94
[2020-04-01 08:05] VITALS: BP 125/72; PULSE 66; RESP 18; TEMP 36.2; O2SAT 95
[2020-04-01 08:16] VITALS: BP 130/79; PULSE 66; RESP 18; TEMP 36.2; O2SAT 95
== END 2020-04-01 08:16 | disposition home or self-care (01) ==
PROVIDERS: PCP Family Medicine; Visit Provider Surgery
PROC: 0DJ08ZZ Inspection of Upper Intestinal Tract, Via Natural or Artificial Opening Endoscopic (ICD-10-PCS; CPT 43235; principal; 2020-04-01 07:30)
DX: K22.2 Esophageal obstruction (principal); K29.60 Other gastritis without bleeding; Z85.72 Personal history of non-Hodgkin lymphomas; N28.9 Disorder of kidney and ureter, unspecified; D64.9 Anemia, unspecified; E11.9 Type 2 diabetes mellitus without complications; E78.5 Hyperlipidemia, unspecified; I10 Essential (primary) hypertension; K21.9 Gastro-esophageal reflux disease without esophagitis; Z87.39 Personal history of other diseases of the musculoskeletal system and connective tissue; Z72.0 Tobacco use; Z82.49 Family history of ischemic heart disease and other diseases of the circulatory system
CPT/HCPCS: 43239; 82962; 87339; 88305; 88313; 88342; J1642

== ENCOUNTER → 2020-05-05 08:35 | Outpatient (CLI) | payer MEDICARE, OTHER, SELFPAY ==
[2020-05-07 13:47] LABS: H. pylori Breath Test Negative (Negative)
== END ==
PROVIDERS: PCP Family Medicine; Visit Provider Surgery
DX: A04.8 Other specified bacterial intestinal infections (principal)
CPT/HCPCS: 83013

== ENCOUNTER → 2020-05-14 08:31 | Outpatient (CLI) | payer MEDICARE, OTHER, SELFPAY ==
--- NOTE | 2020-05-14 08:31 | US_ITS ---
PROCEDURE: US GALLBLADDER CLINICAL INDICATION: Right upper quad pain COMPARISON: CT CT ABDOMEN PELVIS W CON from 02/21/2020 FINDINGS: Pancreas: Unremarkable/Not well seen Liver: Diffuse increased echogenicity of the liver with poor through transmission of sound consistent with hepatic steatosis. No focal liver lesion demonstrated. There is appropriate direction of blood flow within non dilated portal vein. Right kidney: Unremarkable appearing. No hydronephrosis. Gallbladder: There are multiple gallstones present. No gallbladder wall thickening, pericholecystic fluid, or biliary dilatation is evident. Common bile duct is normal at 3 mm. IMPRESSION: Cholelithiasis. Fatty liver Dictated by: Farhan Guerrero MD 05/14/2020 13:24 Farhan Guerrero MD in [place] 05/14/2020 13:24
== END ==
PROVIDERS: PCP Family Medicine; Visit Provider Surgery
DX: R10.11 Right upper quadrant pain (principal)
CPT/HCPCS: 76705

== ENCOUNTER 2020-06-04 08:30 | Outpatient (CLI) | payer MEDICARE, OTHER, SELFPAY | END 2020-06-04 09:05 | disposition home or self-care (01) | LOC: INF 08:40 | PROVIDERS: PCP Family Medicine; Visit Provider Internal Medicine Medical Oncology | DX: Z45.2 Encounter for adjustment and management of vascular access device (principal) | CPT/HCPCS: 96523; J1642 ==

== ENCOUNTER 2020-07-30 08:23 | Outpatient (CLI) | payer MEDICARE, OTHER, SELFPAY ==
[2020-07-30 08:23] VITALS: BMI 32.4
[2020-07-30 08:49] LABS: Basophils # 0.1 K/mm3 (0-0.2); Basophils % 1.3 % (0.1-2.0); Eosinophils # 0.2 K/mm3 (0.0-0.4); Hematocrit 38.1 % (42.0-52.0); Hemoglobin 13.1 g/dL (14.1-18.0); Lymphocytes % 33.2 % (10-50); Mean Corpuscular HGB Conc 34.4 g/dL (31.8-35.4); Mean Corpuscular Hemoglobin 31.8 pg (27.0-31.2); Mean Corpuscular Volume 92.6 fl (80-94); Mean Platelet Volume 8.3 fl (7.4-10.4); Monocytes # 0.5 K/mm3 (0.1-1.0); Monocytes % 8.6 % (1.7-9.3); Neutrophils # 3.1 K/mm3 (1.8-7.8); Neutrophils % 52.8 % (37.0-80.0); Platelet Count 143 K/mm3 (142-424); Red Blood Count 4.12 M/mm3 (4.60-6.20); Red Cell Distribution Width 14.9 % (11.5-17.5); White Blood Count 5.9 K/mm3 (4.8-10.8)
[2020-07-30 08:57] LABS: Alanine Aminotransferase 25 U/L (12-78); Albumin Level 4.6 g/dl (3.5-5.0); Albumin/Globulin Ratio 1.6 (1.1-1.8); Alkaline Phosphatase 52 U/L (38-126); Anion Gap 13.3 mEq/L (5-15); Aspartate Amino Transferase 30 U/L (17-59); Bilirubin,Total 0.6 mg/dl (0.2-1.3); Blood Urea Nitrogen 26 mg/dl (9-20); Calcium 9.5 mg/dl (8.4-10.2); Carbon Dioxide 23 mmol/L (22.0-30.0); Chloride 103 mmol/L (98-107); Creatinine Clearance Estimated 54 mL/min (50-200); Estimated Glomerular Filt Rate 43 ml/min (>60); GFR (African American) 52 ML/MIN (>60); Globulin 2.8 g/dL (1.3-3.2); Glucose 243 mg/dl (74-100); Potassium 4.3 mmoL/L (3.5-5.1); Sodium 135 mmol/L (136-145); Total Protein,Serum 7.4 g/dl (6.3-8.2)
[2020-07-31 16:11] LABS: Free Kappa Lt Chains 28.4 mg/L (3.3-19.4); Free Lambda Lt Chains 11.8 mg/L (5.7-26.3)
== END 2020-07-30 08:37 | disposition home or self-care (01) ==
LOC: INF 08:23
PROVIDERS: Visit Provider Internal Medicine Medical Oncology
DX: Z45.2 Encounter for adjustment and management of vascular access device (principal); C85.98 Non-Hodgkin lymphoma, unspecified, lymph nodes of multiple sites
CPT/HCPCS: 80053; 83883; 85025; J1642

== ENCOUNTER 2020-08-21 08:30 | Outpatient (CLI) | payer MEDICARE, OTHER, SELFPAY ==
--- NOTE | 2020-08-21 | CT_ITS ---
PROCEDURE: CT CHEST W CON CLINCAL INDICATION: LYMPHOMA COMPARISON: CT CT CHEST W CON from 02/21/2020 TECHNIQUE: IV Contrast: 75ml Isovue 370 Axial images obtained with sagittal and coronal reformats. All CT scans at the facility use one or more dose reduction, viz: automated exposure control, ma/kV adjustment per patient size (including targeted exams where dose is matched to indication, i.e. head), or iterative reconstruction technique. FINDINGS: HEART AND MEDIASTINAL STRUCTURES: Unremarkable. No mediastinal or hilar adenopathy or mass. Coronary artery calcifications are present. There is mild thickening the entire length of the esophagus nonspecific but could be seen with esophagitis. The thickening appears somewhat less on today's study compared to the previous exam. LUNGS AND PLEURAL SPACES: Minimal nodularity noted in the right middle lobe posteriorly not significantly changed and may be due to an area of scarring. Minimal atelectatic or fibrotic changes right lower lobe medially BONY STRUCTURES: No acute bony abnormalities apparent. UPPER ABDOMEN: Unremarkable. ADDITIONAL FINDINGS: Right subclavian MediPort catheter remains in place with the tip in the region the SVC IMPRESSION: Stable CT appearance of the chest with no evidence of recurrence of lymphoma Slight improvement mild nonspecific thickening of the esophagus Dictated by: Farhan Guerrero MD 08/22/2020 11:24 Farhan Guerrero MD in [place] 08/22/2020 11:24
--- NOTE | 2020-08-21 | CT_ITS ---
PROCEDURE: CT ABDOMEN PELVIS W CON CLINICAL INDICATION: Follow-up lymphoma COMPARISON: CT CT ABDOMEN PELVIS W CON from 02/21/2020 TECHNIQUE: IV Contrast: 75ML Isovue 370 Oral Contrast None Axial images obtained with sagittal and coronal reformats. All CT scans at the facility use one or more dose reduction, viz: automated exposure control, ma/kV adjustment per patient size (including targeted exams where dose is matched to indication, i.e. head), or iterative reconstruction technique. FINDINGS: Fatty liver. Cholelithiasis mild splenomegaly at 14 cm. Mild diffuse thickening of the esophagus. The adrenal glands, pancreas, and kidneys have an unremarkable appearance. No renal or ureteral calculi. No intestinal obstruction or free air. Stable 12 mm soft tissue density right lower quadrant which may be due to a stone stable lymph node. Other smaller nodes present in the mesenteries unchanged. No new areas of adenopathy or mesenteric mass apparent. Diverticulosis of the colon without diverticulitis. Urinary bladder is decompressed with thickened wall which may be due to the mucosal collapse from the decompression versus cystitis. Please correlate with clinical findings. There are degenerative changes of the hips and lumbar spine. Bilateral pars defect is present at L5 IMPRESSION: 1. Overall stable CT appearance of the abdomen with no evidence of recurrence of lymphoma. Stable small mesenteric lymph nodes. 2. Cholelithiasis. 3. Thickened esophagus slightly improved. 4. Thickening of the wall the urinary bladder which may be due to nondistention versus cystitis. Dictated by: Farhan Guerrero MD 08/22/2020 11:29 Farhan Guerrero MD in [place] 08/22/2020 11:29
[2020-08-21 08:10] VITALS: BMI 23.8
[2020-08-21 08:43] LABS: Basophils # 0.1 K/mm3 (0-0.2); Basophils % 1.3 % (0.1-2.0); Eosinophils # 0.2 K/mm3 (0.0-0.4); Eosinophils % 3.8 % (0.1-12.0); Hematocrit 35.9 % (42.0-52.0); Hemoglobin 12.4 g/dL (14.1-18.0); Lymphocytes # 1.8 K/mm3 (0.7-4.5); Lymphocytes % 30.5 % (10-50); Mean Corpuscular HGB Conc 34.6 g/dL (31.8-35.4); Mean Corpuscular Hemoglobin 31.9 pg (27.0-31.2); Mean Corpuscular Volume 92.2 fl (80-94); Mean Platelet Volume 8.3 fl (7.4-10.4); Monocytes # 0.5 K/mm3 (0.1-1.0); Monocytes % 8.8 % (1.7-9.3); Neutrophils # 3.2 K/mm3 (1.8-7.8); Neutrophils % 55.6 % (37.0-80.0); Platelet Count 150 K/mm3 (142-424); Red Blood Count 3.89 M/mm3 (4.60-6.20); Red Cell Distribution Width 14.7 % (11.5-17.5); White Blood Count 5.8 K/mm3 (4.8-10.8)
[2020-08-21 08:51] LABS: Chloride 104 mmol/L (98-107); Potassium 4.2 mmoL/L (3.5-5.1); Sodium 137 mmol/L (136-145)
[2020-08-21 08:54] LABS: Alanine Aminotransferase 27 U/L (12-78); Albumin Level 4.9 g/dl (3.5-5.0); Albumin/Globulin Ratio 1.6 (1.1-1.8); Alkaline Phosphatase 55 U/L (38-126); Anion Gap 13.2 mEq/L (5-15); Aspartate Amino Transferase 34 U/L (17-59); Bilirubin,Total 0.6 mg/dl (0.2-1.3); Blood Urea Nitrogen 22 mg/dl (9-20); Carbon Dioxide 24 mmol/L (22.0-30.0); Creatinine Clearance Estimated 42 mL/min (50-200); Estimated Glomerular Filt Rate 40 ml/min (>60); GFR (African American) 48 ML/MIN (>60); Total Protein,Serum 7.9 g/dl (6.3-8.2)
[2020-08-21 08:55] LABS: Glucose 204 mg/dl (74-100)
[2020-08-21 10:52] LABS: Total Iron Binding Capacity 339 ug/dL (261-462)
[2020-08-21 11:20] LABS: Vitamin B12 315 pg/mL (239-931)
[2020-08-21 11:48] LABS: Ferritin 126 ng/ml (17.9-464)
[2020-08-21 12:10] LABS: Iron 126 ug/dL (49-181)
[2020-08-22 15:32] LABS: Immunoglobulin A, Qn 143 mg/dL (61-437); Immunoglobulin G, Qn 718 mg/dL (603-1613)
[2020-08-22 17:07] LABS: Immunoglobulin M, Qn 36 mg/dL (15-143)
[2020-08-22 20:48] LABS: Albumin 4.3 g/dL (2.9-4.4); Alpha-1-Globulin 0.3 g/dL (0.0-0.4); Gamma Globulin 0.8 g/dL (0.4-1.8); Protein, Total 7.4 g/dL (6.0-8.5)
== END 2020-08-21 09:35 | disposition home or self-care (01) ==
LOC: RAD 08:31
PROVIDERS: PCP Family Medicine; Visit Provider Internal Medicine Medical Oncology
DX: C85.89 Other specified types of non-Hodgkin lymphoma, extranodal and solid organ sites (principal)
CPT/HCPCS: 71260; 74177; 80053; 82607; 82728; 82784; 83540; 83550; 83883; 84155; 84165; 85025; 86334; J1642; Q9967

== ENCOUNTER 2020-10-03 08:50 | Outpatient (CLI) | payer MEDICARE, OTHER, SELFPAY | END 2020-10-03 09:15 | disposition home or self-care (01) | LOC: INF 08:58 | PROVIDERS: Visit Provider Internal Medicine Medical Oncology | DX: Z45.2 Encounter for adjustment and management of vascular access device (principal) | CPT/HCPCS: 96523; J1642 ==

== ENCOUNTER 2020-11-12 08:17 | Outpatient (CLI) | payer MEDICARE, OTHER, SELFPAY | END 2020-11-12 08:25 | disposition home or self-care (01) | LOC: INF 08:17 | PROVIDERS: Visit Provider Internal Medicine Medical Oncology | DX: Z45.2 Encounter for adjustment and management of vascular access device (principal) | CPT/HCPCS: 96523; J1642 ==

== ENCOUNTER 2020-12-24 08:16 | Outpatient (CLI) | payer MEDICARE, OTHER, SELFPAY | END 2020-12-24 08:40 | disposition home or self-care (01) | LOC: INF 08:16 | PROVIDERS: Visit Provider Internal Medicine Medical Oncology | DX: Z45.2 Encounter for adjustment and management of vascular access device (principal) | CPT/HCPCS: 96523; J1642 ==

== ENCOUNTER 2021-02-04 08:00 | Outpatient (CLI) | payer MEDICARE, OTHER, SELFPAY | END 2021-02-04 08:30 | disposition home or self-care (01) | LOC: INF 08:14 | PROVIDERS: Visit Provider Internal Medicine Medical Oncology | DX: Z45.2 Encounter for adjustment and management of vascular access device (principal) | CPT/HCPCS: 96523; J1642 ==

== ENCOUNTER 2021-03-18 08:10 | Outpatient (CLI) | payer MEDICARE, OTHER, SELFPAY ==
[2021-03-18 08:16] VITALS: BMI 32.3
[2021-03-18 08:43] LABS: Basophils # 0.1 K/mm3 (0-0.2); Eosinophils # 0.3 K/mm3 (0.0-0.4); Hematocrit 38.1 % (42.0-52.0); Hemoglobin 12.8 g/dL (14.1-18.0); Lymphocytes # 2.1 K/mm3 (0.7-4.5); Lymphocytes % 37.5 % (10-50); Mean Corpuscular HGB Conc 33.6 g/dL (31.8-35.4); Mean Corpuscular Hemoglobin 31.6 pg (27.0-31.2); Mean Platelet Volume 8.4 fl (7.4-10.4); Monocytes # 0.5 K/mm3 (0.1-1.0); Monocytes % 8.7 % (1.7-9.3); Neutrophils # 2.6 K/mm3 (1.8-7.8); Neutrophils % 46.8 % (37.0-80.0); Platelet Count 147 K/mm3 (142-424); Red Blood Count 4.06 M/mm3 (4.60-6.20); Red Cell Distribution Width 14.8 % (11.5-17.5); White Blood Count 5.5 K/mm3 (4.8-10.8)
[2021-03-18 08:48] LABS: Alanine Aminotransferase 27 U/L (12-78); Albumin Level 4.4 g/dl (3.5-5.0); Albumin/Globulin Ratio 1.6 (1.1-1.8); Alkaline Phosphatase 51 U/L (38-126); Anion Gap 14.3 mEq/L (5-15); Aspartate Amino Transferase 36 U/L (17-59); Bilirubin,Total 0.5 mg/dl (0.2-1.3); Blood Urea Nitrogen 18 mg/dl (9-20); Calcium 9.2 mg/dl (8.4-10.2); Carbon Dioxide 23 mmol/L (22.0-30.0); Chloride 107 mmol/L (98-107); Creatinine Clearance Estimated 53 mL/min (50-200); Estimated Glomerular Filt Rate 43 ml/min (>60); GFR (African American) 52 ML/MIN (>60); Globulin 2.8 g/dL (1.3-3.2); Glucose 156 mg/dl (74-100); Potassium 4.3 mmoL/L (3.5-5.1); Sodium 140 mmol/L (136-145); Total Protein,Serum 7.2 g/dl (6.3-8.2)
[2021-03-19 13:42] LABS: Albumin 4.3 g/dL (2.9-4.4); Alpha-1-Globulin 0.3 g/dL (0.0-0.4); Alpha-2-Globulin 0.9 g/dL (0.4-1.0); Gamma Globulin 0.7 g/dL (0.4-1.8)
[2021-03-19 16:15] LABS: Immunoglobulin A, Qn 137 mg/dL (61-437); Immunoglobulin G, Qn 706 mg/dL (603-1613); Immunoglobulin M, Qn 34 mg/dL (15-143)
[2021-04-04 15:52] LABS: Free Kappa Lt Chains 29.3; Free Lambda Lt Chains 16.5
== END 2021-03-18 08:30 | disposition home or self-care (01) ==
LOC: INF 08:13
PROVIDERS: PCP Family Medicine; Visit Provider Internal Medicine Medical Oncology
DX: C85.93 Non-Hodgkin lymphoma, unspecified, intra-abdominal lymph nodes (principal); Z45.2 Encounter for adjustment and management of vascular access device
CPT/HCPCS: 80053; 82784; 83883; 84155; 84165; 85025; 86334; J1642

== ENCOUNTER → 2021-04-06 07:45 | Outpatient (CLI) | payer MEDICARE, OTHER, SELFPAY | PROVIDERS: Visit Provider Surgery | DX: Z01.812 Encounter for preprocedural laboratory examination (principal); Z11.52 Encounter for screening for COVID-19 | CPT/HCPCS: C9803; U0003; U0005 ==

== ENCOUNTER 2021-04-07 08:35 | Day surgery (SDC) | payer MEDICARE, OTHER, SELFPAY ==
[2021-04-07] VITALS (9 sets, daily range): BP systolic 133–162; BP diastolic 69–85; PULSE 71–96; RESP 15–18; TEMP 36.2–36.6; O2SAT 94–100; BMI 32.0
--- NOTE | 2021-04-07 09:07 | HMH.ANESCL ---
[facility] Anesthesia Checklist - Patient Identification Patient Identification: Arm Band - Structural Data Admitted From: Home Planned Operative Procedure/s: Port removal Consent for Planned Operative Procedure(s) Verified: Yes - NPO Status Verified Time NPO: 00:00 - Additional verifications Anesthesia Reactions: No Hx Blood Transfusions: No Blood Transfusion Reaction: No - Airway Assessment C-Spine Mobility Assessed: Yes TMJ Mobility Assessed: Yes Dentition: Edentulous - Neurological Assessment Level of Consciousness: Awake Hx Seizures: No Numbness or tingling in extremities: No - Anesthesia Plan Anesthesia Risk discussed: Yes Anesthesia Plan: Verified ASA Class: III Anesthesia Type: MAC [facility] History I have reviewed the patient's past medical history: Yes Medical History: Reports:: Cancer (Lymphoma), Diabetes Mellitus Type 2, Gastroesophageal Reflux Disease(GERD), Hyperlipidemia, Hypertension Denies:: Diabetes Mellitus Type 1, Internal Pacemaker, MRSA, Seizures *Have you ever received a pneumonia vaccine?: Yes *Have you received a flu vaccine this season?: Yes Other Medical History: Reports: Arthritis. Denies: Blood Transfusion Reaction Anesthesia experience/problems:: None Laterality Cases: Left: Arthroscopy Knee Other Surgeries: Yes: Colonoscopy, Other. No: Pacemaker Amputation: No Fractures: No - *Social History Last grade of school completed: High school graduate Smoking Status: Smoker, status unknown Tobacco Type: cigars # Packs/Day (cigarettes): 1 #Yrs smoked (if former smoker): 40 Alcohol Intake: never Substance Use Type: denies use *Occupational Status:: retired Housing: house Household Members: spouse *Travel in the last 8 weeks: Inside the [facility] Family Hx:: Cancer, Heart Attack
[2021-04-07 09:11] LABS: POC Glucose,Bedside 173 (70-110)
--- NOTE | 2021-04-07 11:14 | HMH.OPNOTE ---
Date of procedure: 04/07/21 Pre-op Diagnosis:: Obsolete venous access port Post-op Diagnosis:: Same Procedure performed:: Removal of implantable venous access port Surgeon:: Keith Sandhu MD LINE [employer]ERA OPERATOR:: Spencer Morris Anesthesia: LMA Estimated blood loss (mL): 5 Clinical Note:: Patient is a 75-year-old male with history of lymphoma who had port placed in the right subclavian vein by Dr. Mix on 10/01/14. He has not needed this for the past 5 years. He has continued to get it flushed about every 6 weeks. Presents to see about removal. Operative findings:: Well encapsulated PowerPort Operative note:: Patient was taken to the operating room. He was positioned in supine position. General anesthesia was induced via LMA. Right neck and chest were prepped and draped in the standard surgical fashion. Limited incision was made in the previous scar. Dissection was carried down through subcutaneous tissues to the venous access port infusion tubing. This was then grasped. The port was dissected free from the capsule using Metzenbaum dissection.. The capsule was able to be dissected free from the subcutaneous tissues using electrocautery. The port was removed in its entirety with the attached venous infusion tubing. Pressure was held for a few minutes for hemostasis. Hemostasis within the wound was achieved with electrocautery. Local anesthetic was infiltrated. Subdermal tissues were reapproximated with running 2-0 Vicryl. Skin was closed with 4-0 Monocryl in a running subcuticular fashion. Clean dry sterile dressing was applied. Condition: stable Disposition: PACU Complications:: None immediately apparent
--- NOTE | 2021-04-07 11:19 | HMH.ANESI ---
[facility] Anesthesia Record Part I Intake, IV Amount: 900 Estimated blood loss (mL): 5 Urine output (mL): 0 Blood Pressure: 133/69 SaO2: 94 Pulse Rate: 77 Respiratory Rate: 16 Temperature: 97.1 F Patient is:: Drowsy, Stable Stable to PACU at:: 11:20
[2021-04-07 11:35] LABS: POC Glucose,Bedside 163 (70-110)
--- NOTE | 2021-04-07 11:54 | SUR.PHASEI ---
1125 FSBS obtained with results of 163
--- NOTE | 2021-04-07 16:17 | P.PN_ITS ---
[facility] Anesthesia Record Part II Discharge Time: 11:50 Destination: Surgical Day Care (OP Surgery) PACU nurse assessment reviewed?: Yes Patient Condition:: Good Anesthesia Complications:: None Swallowing reflex intact?: Yes Cyanosis?: No Blood Pressure: 144/80 Pulse Rate: 76 Temperature: 97.9 F Mental Status: Alert & Oriented Pain level:: 0 Nausea and/or vomitting:: None Intake, IV Amount: 0
== END 2021-04-07 12:20 | disposition home or self-care (01) ==
PROVIDERS: PCP Family Medicine; Visit Provider Surgery
PROC: (CPT 36590; principal; 2021-04-07 10:15)
DX: Z85.72 Personal history of non-Hodgkin lymphomas (principal); E11.9 Type 2 diabetes mellitus without complications; K21.9 Gastro-esophageal reflux disease without esophagitis; E78.5 Hyperlipidemia, unspecified; M19.90 Unspecified osteoarthritis, unspecified site; Z80.9 Family history of malignant neoplasm, unspecified; Z82.3 Family history of stroke; Z45.2 Encounter for adjustment and management of vascular access device
CPT/HCPCS: 36590; 82962; J2405

== ENCOUNTER → 2021-06-15 07:51 | Outpatient (CLI) | payer MEDICARE, OTHER, SELFPAY ==
[2021-06-15 08:30] LABS: Basophils # 0.1 K/mm3 (0-0.2); Eosinophils # 0.3 K/mm3 (0.0-0.4); Eosinophils % 4.9 % (0.1-12.0); Hematocrit 37.3 % (42.0-52.0); Hemoglobin 12.9 g/dL (14.1-18.0); Lymphocytes # 2.2 K/mm3 (0.7-4.5); Lymphocytes % 34.4 % (10-50); Mean Corpuscular HGB Conc 34.5 g/dL (31.8-35.4); Mean Corpuscular Hemoglobin 31.6 pg (27.0-31.2); Mean Corpuscular Volume 91.7 fl (80-94); Mean Platelet Volume 7.8 fl (7.4-10.4); Monocytes # 0.5 K/mm3 (0.1-1.0); Monocytes % 8.1 % (1.7-9.3); Neutrophils # 3.3 K/mm3 (1.8-7.8); Neutrophils % 51.6 % (37.0-80.0); Platelet Count 156 K/mm3 (142-424); Red Blood Count 4.07 M/mm3 (4.60-6.20); Red Cell Distribution Width 14.8 % (11.5-17.5); White Blood Count 6.4 K/mm3 (4.8-10.8)
[2021-06-15 09:48] LABS: Chloride 105 mmol/L (98-107); Potassium 4.6 mmoL/L (3.5-5.1); Sodium 140 mmol/L (136-145)
[2021-06-15 09:51] LABS: Alanine Aminotransferase 17 U/L (12-78); Albumin Level 4.6 g/dl (3.5-5.0); Albumin/Globulin Ratio 1.9 (1.1-1.8); Alkaline Phosphatase 55 U/L (38-126); Anion Gap 14.6 mEq/L (5-15); Aspartate Amino Transferase 31 U/L (17-59); Bilirubin,Total 0.5 mg/dl (0.2-1.3); Blood Urea Nitrogen 17 mg/dl (9-20); Calcium 9.3 mg/dl (8.4-10.2); Carbon Dioxide 25 mmol/L (22.0-30.0); Estimated Glomerular Filt Rate 50 ml/min (>60); GFR (African American) 60 ML/MIN (>60); Globulin 2.4 g/dL (1.3-3.2); Glucose 178 mg/dl (74-100)
== END ==
PROVIDERS: Visit Provider Surgery
DX: K80.20 Calculus of gallbladder without cholecystitis without obstruction (principal); Z01.812 Encounter for preprocedural laboratory examination; Z20.822 Contact with and (suspected) exposure to COVID-19
CPT/HCPCS: 80053; 85025; C9803; U0003; U0005

== ENCOUNTER 2021-06-16 06:02 | Day surgery (SDC) | payer MEDICARE, OTHER, SELFPAY ==
[2021-06-15 08:28] VITALS: BMI 37.1
[2021-06-16] VITALS (10 sets, daily range): BP systolic 116–143; BP diastolic 51–76; PULSE 71–107; RESP 12–20; TEMP 36.1–43; O2SAT 93–98
--- NOTE | 2021-06-16 07:37 | P.PN_ITS ---
[facility] Anesthesia Checklist - Structural Data Admitted From: Home Planned Operative Procedure/s: ashley melanie Consent for Planned Operative Procedure(s) Verified: Yes - Additional verifications Anesthesia Reactions: No Hx Blood Transfusions: No Blood Transfusion Reaction: No - Airway Assessment C-Spine Mobility Assessed: Yes TMJ Mobility Assessed: Yes Dentition: Edentulous - Neurological Assessment Level of Consciousness: Awake, Alert, Appropriate - Anesthesia Plan Anesthesia Risk discussed: Yes Anesthesia Plan: Verified ASA Class: II Anesthesia Type: General [facility] History I have reviewed the patient's past medical history: Yes Medical History: Reports:: Cancer (lymphoma), Diabetes Mellitus Type 2, Gastroesophageal Reflux Disease(GERD), Hyperlipidemia, Hypertension Denies:: Diabetes Mellitus Type 1, Internal Pacemaker, MRSA, Seizures *Have you ever received a pneumonia vaccine?: Yes *Have you received a flu vaccine this season?: Yes Other Medical History: Reports: Arthritis. Denies: Blood Transfusion Reaction Anesthesia experience/problems:: none Laterality Cases: Left: Arthroscopy Knee Other Surgeries: Yes: Colonoscopy, Other. No: Pacemaker Amputation: No Fractures: No - *Social History Last grade of school completed: High school graduate Smoking Status: Current some day smoker Tobacco Type: cigars # Packs/Day (cigarettes): 0 #Yrs smoked (if former smoker): 40 Alcohol Intake: never Substance Use Type: denies use *Occupational Status:: retired Housing: house Household Members: spouse *Travel in the last 8 weeks: None Family Hx:: Cancer, Heart Attack, Hypertension
--- NOTE | 2021-06-16 08:28 | P.OP_ITS ---
Date of procedure: 06/16/21 Pre-op Diagnosis:: Symptomatic gallstones Post-op Diagnosis:: Same Procedure performed:: Laparoscopic cholecystectomy Surgeon:: Keith Sandhu MD [employer] SPECIALIST:: Federico Hernández Anesthesia: GETA Estimated blood loss (mL): 20 Clinical Note:: Patient presents for cholecystectomy. He has a history of lymphoma. Routine previous imaging revealed gallstones and distal esophageal thickening. I did perform an upper endoscopy on him and he was treated for H. pylori. He underwent definitive gallbladder ultrasound about 1 year ago which revealed multiple gallstones. Initially he seemed to be asymptomatic regarding his gallbladder. He has always downplayed any symptomatology. I have followed him regularly for this. Last time he was seen about 6 months ago he seemed to have no significant symptoms. However, he states that he has some symptoms of postprandial fullness and early satiety with bloating, right upper quadrant pain and epigastric pain, associated nausea. Patient has had numerous family members who have had to have cholecystectomy. Operative findings:: He had a distended gallbladder with stones. He had somewhat of a fatty mildly nodular appearing liver Operative note:: Patient was taken to the operating room. He was given preoperative intravenous antibiotics. In the operating room he was placed in a supine position. General anesthesia was induced via endotracheal tube. Abdomen was prepped and draped in the standard surgical fashion. Subumbilical skin incision was made while performing abdominal wall lift Veress needle was inserted. CO2 pneumoperitoneum was achieved to 15 mmHg. 11 mm optical trocar was inserted at the umbilicus. He was positioned in reverse Trendelenburg left side down. A couple 5 mm trochars were inserted in the right upper abdomen. 10 mm trocar was inserted in the epigastrium. Gallbladder was identified and retracted anteriorly and superiorly over the dome of the liver. The 0 degree laparoscope was placed with the angled laparoscope to allow for visualization. He did have an appreciable amount of visceral adipose tissue. Infundibulum of the gallbladder was grasped retracted anterior laterally. Blunt dissection was carried out the neck of the gallbladder bluntly incising the visceral peritoneum. Dissection was carried out identifying the cystic duct and cystic artery. Cystic duct was multiply clipped and sharply divided. Cystic artery was carefully coagulated with DANIAL ultrasonic robotic yecenia and divided. Gallbladder was dissected free from the liver in a retrograde fashion using DANIAL ultrasonic robotic yecenia. Gallbladder was placed within an Endo Catch retrieval device and removed from the peritoneal cavity via the umbilical trocar site which required some extension of the fascial incision for delivery. Gallbladder fossa and perihepatic space were irrigated and aspirated until clear. Some spot use of electrocautery was used on the gallbladder fossa for good hemostasis. Trochars were removed as CO2 pneumoperitoneum was evacuated. Fascia at the umbilicus was closed with several interrupted 0 Vicryl sutures. Local anesthetic was infiltrated. Skin incisions were closed with 4-0 Monocryl in a subcuticular fashion. Steri-Strips and dressings were applied. Condition: stable Disposition: PACU Specimens:: Gallbladder and contents Complications:: None immediately apparent
--- NOTE | 2021-06-16 08:33 | HMH.ANESI ---
[facility] Anesthesia Record Part I Intake, IV Amount: 1,200 Estimated blood loss (mL): 0 Urine output (mL): 0 Blood Pressure: 124/65 SaO2: 94 Pulse Rate: 87 Respiratory Rate: 12 Temperature: 98.7 F Patient is:: Awake, Stable Stable to PACU at:: 08:30
[2021-06-16 08:43] LABS: POC Glucose,Bedside 194 (70-110)
[2021-06-18 09:04] VITALS: BP 121/66; PULSE 72; TEMP 36.4
--- NOTE | 2021-06-18 09:04 | P.PN_ITS ---
[facility] Anesthesia Record Part II Discharge Time: 08:59 Destination: Surgical Day Care (OP Surgery) PACU nurse assessment reviewed?: Yes Patient Condition:: Good Anesthesia Complications:: None Swallowing reflex intact?: Yes Cyanosis?: No Blood Pressure: 121/66 Pulse Rate: 72 Temperature: 97.6 F Mental Status: Alert & Oriented Pain level:: 0 Nausea and/or vomitting:: None Intake, IV Amount: 0
[2022-04-08 10:55] LABS: POC Glucose,Bedside 190 (70-110)
== END 2021-06-16 09:32 | disposition home or self-care (01) ==
LOC: OR 06:04
PROVIDERS: PCP Family Medicine; Visit Provider Surgery
PROC: 0FT44ZZ Resection of Gallbladder, Percutaneous Endoscopic Approach (ICD-10-PCS; CPT 47562; principal; 2021-06-16 07:30)
DX: K80.20 Calculus of gallbladder without cholecystitis without obstruction (principal); K76.0 Fatty (change of) liver, not elsewhere classified; Z85.72 Personal history of non-Hodgkin lymphomas; E11.9 Type 2 diabetes mellitus without complications; K21.9 Gastro-esophageal reflux disease without esophagitis; E78.5 Hyperlipidemia, unspecified; I10 Essential (primary) hypertension; Z72.0 Tobacco use; Z80.9 Family history of malignant neoplasm, unspecified; Z82.49 Family history of ischemic heart disease and other diseases of the circulatory system; Z79.4 Long term (current) use of insulin; Z79.899 Other long term (current) drug therapy
CPT/HCPCS: 47562; 82962; 88304; 88305; 96374; J2405; J2710

== ENCOUNTER → 2021-09-15 07:42 | Outpatient (CLI) | payer MEDICARE, SELFPAY ==
[2021-09-15 08:25] LABS: Basophils # 0.1 K/mm3 (0-0.2); Basophils % 1.9 % (0.1-2.0); Eosinophils # 0.3 K/mm3 (0.0-0.4); Eosinophils % 4.9 % (0.1-12.0); Hematocrit 45.2 % (42.0-52.0); Hemoglobin 14.3 g/dL (14.1-18.0); Lymphocytes % 33.1 % (10-50); Mean Corpuscular HGB Conc 31.7 g/dL (31.8-35.4); Mean Corpuscular Hemoglobin 30.9 pg (27.0-31.2); Mean Corpuscular Volume 97.5 fl (80-94); Mean Platelet Volume 8.3 fl (7.4-10.4); Monocytes # 0.5 K/mm3 (0.1-1.0); Monocytes % 9.1 % (1.7-9.3); Neutrophils % 50.9 % (37.0-80.0); Platelet Count 173 K/mm3 (142-424); Red Blood Count 4.63 M/mm3 (4.60-6.20); Red Cell Distribution Width 14.9 % (11.5-17.5); White Blood Count 5.9 K/mm3 (4.8-10.8)
[2021-09-15 09:19] LABS: Alanine Aminotransferase 26 U/L (12-78); Albumin Level 4.9 g/dl (3.5-5.0); Albumin/Globulin Ratio 1.9 (1.1-1.8); Alkaline Phosphatase 53 U/L (38-126); Anion Gap 14.1 mEq/L (5-15); Aspartate Amino Transferase 37 U/L (17-59); Bilirubin,Total 0.8 mg/dl (0.2-1.3); Blood Urea Nitrogen 17 mg/dl (9-20); Calcium 9.7 mg/dl (8.4-10.2); Carbon Dioxide 25 mmol/L (22.0-30.0); Chloride 104 mmol/L (98-107); Estimated Glomerular Filt Rate 46 ml/min (>60); GFR (African American) 56 ML/MIN (>60); Globulin 2.6 g/dL (1.3-3.2); Glucose 201 mg/dl (74-100); Potassium 5.1 mmoL/L (3.5-5.1); Sodium 138 mmol/L (136-145); Total Protein,Serum 7.5 g/dl (6.3-8.2)
[2021-09-16 13:12] LABS: Immunoglobulin A, Qn 156 mg/dL (61-437); Immunoglobulin G, Qn 782 mg/dL (603-1613); Immunoglobulin M, Qn 35 mg/dL (15-143)
[2021-09-16 15:11] LABS: Albumin 4.4 g/dL (2.9-4.4); Alpha-1-Globulin 0.3 g/dL (0.0-0.4); Alpha-2-Globulin 1.1 g/dL (0.4-1.0); Gamma Globulin 0.8 g/dL (0.4-1.8); Protein, Total 7.7 g/dL (6.0-8.5)
[2021-10-14 21:21] LABS: Free Kappa Lt Chains 28.4; Free Lambda Lt Chains 17.1
== END ==
PROVIDERS: Visit Provider Internal Medicine Medical Oncology
DX: C85.90 Non-Hodgkin lymphoma, unspecified, unspecified site (principal)
CPT/HCPCS: 36415; 80053; 82784; 83883; 84155; 84165; 85025; 86334

== ENCOUNTER → 2022-02-15 06:56 | Outpatient (CLI) | payer MEDICARE, SELFPAY | PROVIDERS: PCP Family Medicine; Visit Provider Ophthalmology | DX: Z01.812 Encounter for preprocedural laboratory examination (principal); Z20.822 Contact with and (suspected) exposure to COVID-19 | CPT/HCPCS: C9803; U0003; U0005 ==

== ENCOUNTER 2022-02-16 07:31 | Day surgery (SDC) | payer MEDICARE, SELFPAY ==
[2022-02-12 09:06] VITALS: BMI 31.1
[2022-02-16] VITALS (8 sets, daily range): BP systolic 127–150; BP diastolic 70–84; PULSE 67–98; RESP 16–18; TEMP 36.3–36.6; O2SAT 97–100
[2022-02-16 08:20] LABS: POC Glucose,Bedside 181 (70-110)
== END 2022-02-16 09:48 | disposition home or self-care (01) ==
LOC: OR 07:32
PROVIDERS: PCP Family Medicine; Visit Provider Ophthalmology
DX: H25.813 Combined forms of age-related cataract, bilateral (principal); E11.9 Type 2 diabetes mellitus without complications
CPT/HCPCS: 66984; 82962; V2632

== ENCOUNTER → 2022-03-01 06:58 | Outpatient (CLI) | payer MEDICARE, SELFPAY | PROVIDERS: PCP Family Medicine; Visit Provider Ophthalmology | DX: Z01.812 Encounter for preprocedural laboratory examination (principal); Z20.822 Contact with and (suspected) exposure to COVID-19 | CPT/HCPCS: C9803; U0003; U0005 ==

== ENCOUNTER → 2022-03-11 06:55 | Outpatient (CLI) | payer MEDICARE, SELFPAY ==
[2022-03-11 08:08] LABS: Basophils # 0.1 K/mm3 (0-0.2); Basophils % 1.5 % (0.1-2.0); Eosinophils # 0.3 K/mm3 (0.0-0.4); Eosinophils % 4.6 % (0.1-12.0); Hematocrit 43.1 % (42.0-52.0); Hemoglobin 13.7 g/dL (14.1-18.0); Lymphocytes # 1.9 K/mm3 (0.7-4.5); Lymphocytes % 28.3 % (10-50); Mean Corpuscular HGB Conc 31.8 g/dL (31.8-35.4); Mean Corpuscular Hemoglobin 29.9 pg (27.0-31.2); Mean Corpuscular Volume 94.1 fl (80-94); Monocytes # 0.6 K/mm3 (0.1-1.0); Monocytes % 9.3 % (1.7-9.3); Neutrophils # 3.8 K/mm3 (1.8-7.8); Neutrophils % 56.2 % (37.0-80.0); Platelet Count 187 K/mm3 (142-424); Red Blood Count 4.58 M/mm3 (4.60-6.20); White Blood Count 6.7 K/mm3 (4.8-10.8)
[2022-03-11 09:14] LABS: Alanine Aminotransferase 29 U/L (12-78); Albumin Level 4.5 g/dl (3.5-5.0); Albumin/Globulin Ratio 1.8 (1.1-1.8); Alkaline Phosphatase 69 U/L (38-126); Anion Gap 12.6 mEq/L (5-15); Aspartate Amino Transferase 45 U/L (17-59); Bilirubin,Total 0.4 mg/dl (0.2-1.3); Blood Urea Nitrogen 17 mg/dl (9-20); Carbon Dioxide 26 mmol/L (22.0-30.0); Chloride 105 mmol/L (98-107); Estimated Glomerular Filt Rate 42 ml/min (>60); GFR (African American) 51 ML/MIN (>60); Globulin 2.5 g/dL (1.3-3.2); Glucose 168 mg/dl (74-100); Potassium 4.6 mmoL/L (3.5-5.1); Sodium 139 mmol/L (136-145)
[2022-03-12 16:46] LABS: Albumin 4.2 g/dL (2.9-4.4); Alpha-1-Globulin 0.3 g/dL (0.0-0.4); Alpha-2-Globulin 1.1 g/dL (0.4-1.0); Gamma Globulin 0.8 g/dL (0.4-1.8); Immunoglobulin A, Qn 149 mg/dL (61-437); Immunoglobulin G, Qn 744 mg/dL (603-1613); Immunoglobulin M, Qn 52 mg/dL (15-143); Protein, Total 7.3 g/dL (6.0-8.5)
[2022-03-28 19:46] LABS: Free Kappa Lt Chains 37.2; Free Lambda Lt Chains 19.1
== END ==
PROVIDERS: PCP Family Medicine; Visit Provider Internal Medicine Medical Oncology
DX: D64.9 Anemia, unspecified (principal)
CPT/HCPCS: 36415; 80053; 82784; 83883; 84155; 84165; 85025; 86334

== ENCOUNTER → 2022-04-05 07:04 | Outpatient (CLI) | payer MEDICARE, SELFPAY | PROVIDERS: PCP Family Medicine; Visit Provider Ophthalmology | DX: Z01.812 Encounter for preprocedural laboratory examination (principal); Z20.822 Contact with and (suspected) exposure to COVID-19; H25.012 Cortical age-related cataract, left eye | CPT/HCPCS: C9803; U0003; U0005 ==

== ENCOUNTER 2022-04-06 06:55 | Day surgery (SDC) | payer MEDICARE, SELFPAY ==
[2022-02-24 10:06] VITALS: BMI 30.9
[2022-04-05 08:44] VITALS: BMI 30.3
[2022-04-06 07:16] VITALS: BP 154/85; PULSE 85; RESP 18; TEMP 36.5; O2SAT 97
[2022-04-06 07:26] LABS: POC Glucose,Bedside 206 (70-110)
[2022-04-06 08:45] VITALS: BP 155/73; PULSE 64; RESP 18; O2SAT 100
[2022-04-06 08:50] VITALS: BP 142/75; PULSE 63; RESP 18; O2SAT 98
[2022-04-06 08:55] VITALS: BP 148/79; PULSE 64; RESP 18; O2SAT 100
[2022-04-06 09:00] VITALS: BP 150/75; PULSE 63; RESP 18; O2SAT 100
[2022-04-06 09:04] VITALS: BP 150/74; PULSE 80; RESP 16; TEMP 36.4; O2SAT 99
== END 2022-04-06 09:12 | disposition home or self-care (01) ==
LOC: OR 06:56
PROVIDERS: PCP Family Medicine; Visit Provider Ophthalmology
DX: H26.9 Unspecified cataract (principal); Z79.899 Other long term (current) drug therapy; Z72.0 Tobacco use; E11.9 Type 2 diabetes mellitus without complications
CPT/HCPCS: 66984; 82962; V2632

== ENCOUNTER → 2022-10-13 06:45 | Outpatient (CLI) | payer MEDICARE, SELFPAY ==
[2022-10-13 09:02] LABS: Basophils # 0.1 K/mm3 (0-0.2); Basophils % 1.4 % (0.1-2.0); Eosinophils # 0.3 K/mm3 (0.0-0.4); Eosinophils % 3.8 % (0.1-12.0); Hemoglobin 13.7 g/dL (14.1-18.0); Lymphocytes % 28.6 % (10-50); Mean Corpuscular HGB Conc 33.3 g/dL (31.8-35.4); Mean Corpuscular Hemoglobin 29.2 pg (27.0-31.2); Mean Corpuscular Volume 87.6 fl (80-94); Mean Platelet Volume 9.2 fl (7.4-10.4); Monocytes # 0.6 K/mm3 (0.1-1.0); Monocytes % 8.3 % (1.7-9.3); Neutrophils % 57.9 % (37.0-80.0); Platelet Count 224 K/mm3 (142-424); Red Blood Count 4.68 M/mm3 (4.60-6.20); White Blood Count 6.9 K/mm3 (4.8-10.8)
[2022-10-13 09:12] LABS: Chloride 103 mmol/L (98-107)
[2022-10-13 09:13] LABS: Potassium 4.2 mmoL/L (3.5-5.1); Sodium 139 mmol/L (136-145)
[2022-10-13 09:15] LABS: Alanine Aminotransferase 22 U/L (12-78); Alkaline Phosphatase 66 U/L (38-126); Aspartate Amino Transferase 34 U/L (17-59); Bilirubin,Total 0.8 mg/dl (0.2-1.3); Blood Urea Nitrogen 20 mg/dl (9-20); Estimated Glomerular Filt Rate 42 ml/min (>60); GFR (African American) 51 ML/MIN (>60)
[2022-10-13 09:16] LABS: Albumin Level 4.9 g/dl (3.5-5.0); Anion Gap 14.2 mEq/L (5-15); Calcium 9.4 mg/dl (8.4-10.2); Carbon Dioxide 26 mmol/L (22.0-30.0); Globulin 2.5 g/dL (1.3-3.2); Glucose 152 mg/dl (74-100); Total Protein,Serum 7.4 g/dl (6.3-8.2)
[2022-10-14 14:15] LABS: Immunoglobulin A, Qn 132 mg/dL (61-437); Immunoglobulin G, Qn 830 mg/dL (603-1613); Immunoglobulin M, Qn 72 mg/dL (15-143)
[2022-10-14 16:50] LABS: Albumin 4.1 g/dL (2.9-4.4); Alpha-1-Globulin 0.3 g/dL (0.0-0.4); Gamma Globulin 0.8 g/dL (0.4-1.8); Protein, Total 7.2 g/dL (6.0-8.5)
[2022-10-16 17:15] LABS: Free Kappa Lt Chains 51.1; Free Lambda Lt Chains 20.1
== END ==
LOC: LAB 06:47
PROVIDERS: PCP Family Medicine; Visit Provider Internal Medicine Medical Oncology
DX: C90.00 Multiple myeloma not having achieved remission (principal); Z85.038 Personal history of other malignant neoplasm of large intestine
CPT/HCPCS: 36415; 80053; 82784; 83883; 84155; 84165; 85025; 86334

== ENCOUNTER → 2022-10-30 08:31 | Outpatient (CLI) | payer MEDICARE, SELFPAY ==
[2022-11-02 17:14] LABS: Albumin, U 65.5 % (.); Alpha-1-Globulin, U 4.7 % (.); Alpha-2-Globulin, U 7.6 % (.); Beta Globulin, U 11.6 % (.); Gamma Globulin, U 10.5 % (.); M-Spike, % Not Observed % (Not Observed); Prot,24hr calculated 360 mg/24 hr (30-150)
== END ==
PROVIDERS: PCP Family Medicine; Visit Provider Internal Medicine Medical Oncology
DX: E85.81 Light chain (AL) amyloidosis (principal); N39.0 Urinary tract infection, site not specified
CPT/HCPCS: 84156; 84166; 86335

== ENCOUNTER 2023-04-15 07:17 | Day surgery (SDC) | payer MEDICARE, SELFPAY ==
[2023-04-12 13:58] VITALS: BMI 29.5
[2023-04-15 07:41] VITALS: BP 146/78; PULSE 87; RESP 18; TEMP 36.1; O2SAT 98
[2023-04-15 08:01] LABS: POC Glucose,Bedside 203 (70-110)
--- NOTE | 2023-04-15 08:05 | HMH.SCOPE ---
Procedure: Date: 04/15/23 Patient Date of :: 1945 Procedure Performed:: Total colonoscopy to terminal ileum with biopsies Indications:: Patient is a 77-year-old male whom I had seen in the past. He has a history of lymphoma. I had performed colonoscopy on him on 05/22/2019. He did have some tubular adenomas removed. I had subsequently performed EGD and he ultimately was found to have gallbladder disease and underwent cholecystectomy. Performing Provider:: Keith Sandhu MD Referring Provider:: Michael Canales MD Sedation:: MAC sedation Procedure:: Patient history was obtained and appropriate physical examination was performed. Patient's medications and allergies were reviewed. Informed consent was obtained after explaining the benefits, alternatives, and risks of the procedure including, but not limited to, bleeding, perforation, missed lesions, and adverse reaction to anesthesia medications. Patient was transported to endoscopy procedure room. Patient was connected to monitoring devices. Throughout the procedure the patient's blood pressure, pulse, and oxygen saturations were monitored continuously. Patient identification and planned procedure were verified by the staff. Patient was positioned in lateral decubitus position. Digital anorectal exam was performed. Variable stiffness Olympus colonoscope was inserted and advanced under direct visualization to the cecum. Adequacy of the colonic preparation was noted. The colonoscope was advanced a short distance into the terminal ileum. The colonoscope was then slowly withdrawn while carefully examining the color, texture, anatomy, and integrity of the mucosoa circumferentially. Within the rectum retroflexion was performed. Colonoscope was then withdrawn. . Colonic preparation was good. Within the terminal ileum there was some mildly inflamed erythematous mucosa and biopsies were obtained. When the colonoscope was withdrawn into the cecum there was prominence of the ileocecal valve. Initially this was thought to be possible adenomatous polyp but it appeared to be more likely prolapsing ileum at the ileocecal valve. Multiple biopsies were obtained to rule out adenomatous change. There were scattered rare diverticuli. There is minimal internal hemorrhoids. . Findings:: Mildly inflamed ileitis Prominent prolapsing mucosa at the ileocecal valve, biopsied to rule out adenomatous change Recommendations:: Repeat colonoscopy pending pathology. If biopsies near the ileocecal valve are adenomatous will need early follow-up colonoscopy. Otherwise repeat colonoscopy up to 10 years Complications:: None immediate Estimated blood obtained (mL): 2 Colonoscopy Component Colonoscopy Component Was a colonoscopy performed during today's procedure?: Yes Recommended follow up colonoscopy of at least 10 years?: No If no, follow up colonoscopy recommended in ___ years?: 1-10 Reason for not recommending >/= 10 yr follow-up interval?: Pending pathology
[2023-04-15 08:09] VITALS: O2SAT 93
[2023-04-15 08:35] VITALS: BP 91/55; PULSE 67; RESP 16; TEMP 36.6; O2SAT 96
--- NOTE | 2023-04-15 08:35 | EXP.ANES.CKL ---
[facility] Disclaimer: The information contained in this section may have been updated after the patient was seen, as this information can be updated by other users. Medical History Allergies Arthritis Cancer Cholecystectomy planned Diabetes mellitus Diabetes mellitus, type 2 GERD (gastroesophageal reflux disease) History of cataract History of gastroesophageal reflux (GERD) History of hypertension Hyperlipemia Surgical History History of arthroscopic knee surgery left knee Family History Brother Cancer Other Heart disease Social History (Updated 04/15/23 @ 07:48 by Audrey Muro RN) Smoking Status: Current some day smoker tobacco type: cigars years smoked: 15 second hand exposure: No alcohol intake: never substance use type: denies use current occupational status: retired Travel in the last 8 weeks: None household members: spouse housing: house current occupational exposures/hazards: No caffeine: Yes [facility] Anesthesia Checklist Patient Identification Patient Identification: Arm Band Structural Data Admitted From: Home Planned Operative Procedure/s: colonoscopy Consent for Planned Operative Procedure(s) Verified: Yes Verified Documents: Surgical Consent and History and Physical NPO Status Verified Time NPO: 02:00 (prep) Additional verifications Anesthesia Reactions: No Hx Blood Transfusions: No Blood Transfusion Reaction: No Airway Assessment Mallampati Score:: Class II C-Spine Mobility Assessed: Yes TMJ Mobility Assessed: Yes Dentition: Edentulous Neurological Assessment Level of Consciousness: Awake and Alert Anesthesia Plan Anesthesia Risk discussed: Yes Anesthesia Plan: Verified ASA Class: III Anesthesia Type: MAC
[2023-04-15 08:45] VITALS: BP 97/65; PULSE 67; RESP 16; O2SAT 96
[2023-04-15 08:55] VITALS: BP 97/59; PULSE 73; RESP 18; O2SAT 95
[2023-04-15 09:05] VITALS: BP 118/62; PULSE 68; RESP 16; TEMP 36.6; O2SAT 98
== END 2023-04-15 09:05 | disposition home or self-care (01) ==
PROVIDERS: PCP Family Medicine; Visit Provider Surgery
PROC: 0DJD8ZZ Inspection of Lower Intestinal Tract, Via Natural or Artificial Opening Endoscopic (ICD-10-PCS; CPT G0105; principal; 2023-04-15 08:30)
DX: Z12.11 Encounter for screening for malignant neoplasm of colon (principal); Z86.010 Personal history of colon polyps; Z85.72 Personal history of non-Hodgkin lymphomas; Z90.89 Acquired absence of other organs; K64.8 Other hemorrhoids; E11.9 Type 2 diabetes mellitus without complications
CPT/HCPCS: G0105; 82962; 88305; J2704

== ENCOUNTER → 2023-04-25 12:12 | Outpatient (CLI) | payer MEDICARE, SELFPAY ==
[2023-04-25 13:09] LABS: Basophils # 0.1 K/mm3 (0-0.2); Eosinophils # 0.3 K/mm3 (0.0-0.4); Eosinophils % 3.3 % (0.1-12.0); Hematocrit 38.3 % (42.0-52.0); Hemoglobin 13.9 g/dL (14.1-18.0); Lymphocytes % 24.7 % (10-50); Mean Corpuscular HGB Conc 36.2 g/dL (31.8-35.4); Mean Corpuscular Hemoglobin 31.7 pg (27.0-31.2); Mean Corpuscular Volume 87.6 fl (80-94); Mean Platelet Volume 7.7 fl (7.4-10.4); Monocytes # 0.6 K/mm3 (0.1-1.0); Monocytes % 7.1 % (1.7-9.3); Neutrophils # 5.1 K/mm3 (1.8-7.8); Neutrophils % 63.9 % (37.0-80.0); Platelet Count 167 K/mm3 (142-424); Red Blood Count 4.37 M/mm3 (4.60-6.20); Red Cell Distribution Width 14.8 % (11.5-17.5); White Blood Count 7.9 K/mm3 (4.8-10.8)
[2023-04-25 14:16] LABS: Ferritin 128 ng/ml (17.9-464)
[2023-04-25 15:20] LABS: Iron 60 ug/dL (49-181)
[2023-04-25 15:30] LABS: Total Iron Binding Capacity 308 ug/dL (261-462)
[2023-04-26 13:10] LABS: Alpha-1-Globulin 0.2 g/dL (0.0-0.4); Alpha-2-Globulin 0.9 g/dL (0.4-1.0); Gamma Globulin 0.4 g/dL (0.4-1.8); Protein, Total 7.1 g/dL (6.0-8.5)
[2023-04-27 15:33] LABS: Immunoglobulin A, Qn 127 mg/dL (61-437); Immunoglobulin G, Qn 828 mg/dL (603-1613); Immunoglobulin M, Qn 70 mg/dL (15-143)
[2023-04-30 10:16] LABS: Free Kappa Lt Chains 46.6; Free Lambda Lt Chains 20.9
== END ==
PROVIDERS: PCP Family Medicine; Visit Provider Internal Medicine Medical Oncology
DX: C85.90 Non-Hodgkin lymphoma, unspecified, unspecified site (principal)
CPT/HCPCS: 36415; 82728; 82784; 83540; 83550; 83883; 84155; 84165; 85025; 86334

== ENCOUNTER → 2023-05-05 09:47 | Outpatient (CLI) | payer MEDICARE, SELFPAY ==
[2023-05-05 11:30] LABS: Alanine Aminotransferase 24 U/L (12-78); Albumin Level 4.2 g/dl (3.5-5.0); Albumin/Globulin Ratio 1.6 (1.1-1.8); Alkaline Phosphatase 66 U/L (38-126); Anion Gap 18.1 mEq/L (5-15); Aspartate Amino Transferase 31 U/L (17-59); Bilirubin,Total 0.5 mg/dl (0.2-1.3); Blood Urea Nitrogen 18 mg/dl (9-20); Calcium 9.2 mg/dl (8.4-10.2); Carbon Dioxide 19 mmol/L (22.0-30.0); Chloride 105 mmol/L (98-107); Estimated Glomerular Filt Rate 46 ml/min (>60); GFR (African American) 55 ML/MIN (>60); Globulin 2.6 g/dL (1.3-3.2); Glucose 238 mg/dl (74-100); Potassium 4.1 mmoL/L (3.5-5.1); Sodium 138 mmol/L (136-145); Total Protein,Serum 6.8 g/dl (6.3-8.2)
== END ==
PROVIDERS: PCP Family Medicine; Visit Provider Internal Medicine Medical Oncology
DX: Z85.79 Personal history of other malignant neoplasms of lymphoid, hematopoietic and related tissues (principal)
CPT/HCPCS: 36415; 80053

== ENCOUNTER → 2023-05-10 07:54 | Outpatient (CLI) | payer MEDICARE, SELFPAY ==
--- NOTE | 2023-05-10 08:01 | CT_ITS ---
FINAL REPORT TECHNIQUE: Axial images were obtained from the lung bases through the pubic symphysis before and after the administration of intravenous contrast. Oral contrast was administered. This study was performed with techniques to keep radiation doses as low as reasonably achievable (ALARA). Individualized dose reduction techniques using automated exposure control or adjustment of mA and/or kV according to the patient's size were employed. CLINICAL HISTORY: LYMPHOMA COMPARISON: August 2020 FINDINGS: Precontrast images demonstrate no evidence of nephrolithiasis or hydronephrosis. Abdomen: The liver parenchyma is homogeneous. There has been cholecystectomy. There is no significant change in mild splenomegaly measuring up to 13.7 cm. The pancreas and adrenal glands are unremarkable. The kidneys enhance normally. There are multiple small retroperitoneal lymph nodes that are stable. There is a small amount of soft tissue at the root of the small bowel mesentery that is visually stable and favored to represent posttreatment change. A 13 mm nodule in the right abdomen mesentery is stable and could be posttreatment change versus a mildly enlarged lymph node. There is no evidence of bowel obstruction. Pelvis: There are bilateral L5 pars defects again seen. There is diverticulosis of the sigmoid colon. The appendix is not identified. The urinary bladder is unremarkable. There is an intramuscular lipoma in the right rectus femoris. IMPRESSION: Stable exam. Reviewed, Interpreted and Dictated by Keith Moscoso III, MD Transcribed by Caden Noel Authenticated and [facility]
--- NOTE | 2023-05-10 08:01 | CT_ITS ---
FINAL REPORT CLINICAL HISTORY: LYMPHOMA COMPARISON: August 2020 FINDINGS: Before and after the administration of intravenous contrast, axial images through the chest were performed by computed tomography. This study was performed with techniques to keep radiation doses as low as reasonably achievable, (ALARA). Individualized dose reduction techniques using automated exposure control or adjustment of mA and/or kV according to the patient's size were employed. There is no axillary adenopathy. There is no hilar or mediastinal adenopathy. The heart size is normal. There is no pericardial or pleural effusion. There is mild scarring in the right lung base. No suspicious infiltrate or nodule identified. There is persistent diffuse esophageal wall thickening that is likely inflammatory. IMPRESSION: Persistent diffuse esophageal wall thickening is likely inflammatory. If indicated, correlate with upper endoscopy. Stable exam. Reviewed, Interpreted and Dictated by Keith Moscoso III, MD Transcribed by Caden Noel Authenticated and [facility]
== END ==
PROVIDERS: PCP Family Medicine; Visit Provider Internal Medicine Medical Oncology
DX: Z85.79 Personal history of other malignant neoplasms of lymphoid, hematopoietic and related tissues (principal)
CPT/HCPCS: 71270; 74178; Q9967

== ENCOUNTER 2024-05-04 06:50 | Outpatient (CLI) | payer MEDICARE, SELFPAY ==
[2024-05-04 08:02] LABS: Basophils # 0.1 K/mm3 (0-0.2); Basophils % 1.4 % (0.1-2.0); Eosinophils # 0.2 K/mm3 (0.0-0.4); Hematocrit 37.6 % (42.0-52.0); Hemoglobin 13.3 g/dL (14.1-18.0); Lymphocytes # 1.5 K/mm3 (0.7-4.5); Lymphocytes % 21.6 % (10-50); Mean Corpuscular HGB Conc 35.3 g/dL (31.8-35.4); Mean Corpuscular Hemoglobin 30.5 pg (27.0-31.2); Mean Corpuscular Volume 86.2 fl (80-94); Mean Platelet Volume 7.4 fl (7.4-10.4); Monocytes # 0.5 K/mm3 (0.1-1.0); Monocytes % 7.9 % (1.7-9.3); Neutrophils # 4.5 K/mm3 (1.8-7.8); Neutrophils % 66.2 % (37.0-80.0); Platelet Count 158 K/mm3 (142-424); Red Blood Count 4.36 M/mm3 (4.60-6.20); White Blood Count 6.7 K/mm3 (4.8-10.8)
[2024-05-04 09:05] LABS: Albumin Level 4.5 g/dl (3.5-5.0); Chloride 109 mmol/L (98-107); Sodium 141 mmol/L (136-145)
[2024-05-04 09:06] LABS: Potassium 5.3 mmoL/L (3.5-5.1)
[2024-05-04 09:08] LABS: Alanine Aminotransferase 16 U/L (12-78); Albumin/Globulin Ratio 1.9 (1.1-1.8); Alkaline Phosphatase 52 U/L (38-126); Anion Gap 12.3 mEq/L (5-15); Aspartate Amino Transferase 26 U/L (17-59); Bilirubin,Total 0.8 mg/dl (0.2-1.3); Blood Urea Nitrogen 24 mg/dl (9-20); Carbon Dioxide 25 mmol/L (22.0-30.0); Estimated Glomerular Filt Rate 46 ml/min (>60); GFR (African American) 55 ML/MIN (>60); Globulin 2.4 g/dL (1.3-3.2); Total Protein,Serum 6.9 g/dl (6.3-8.2)
[2024-05-04 09:09] LABS: Calcium 9.6 mg/dl (8.4-10.2); Glucose 198 mg/dl (74-100)
== END 2024-05-04 23:59 | disposition home or self-care (01) ==
LOC: LAB 06:51
PROVIDERS: PCP Family Medicine; Visit Provider Internal Medicine Medical Oncology
DX: C85.90 Non-Hodgkin lymphoma, unspecified, unspecified site (principal)
CPT/HCPCS: 36415; 80053; 85025

== ENCOUNTER 2025-05-06 06:52 | Outpatient (CLI) | payer MEDICARE, SELFPAY ==
--- OUTSIDE RECORDS SUMMARY | 2025-05-06 06:55 | XMS_ITS | Clinical Summary ---
Author Organization [facility] Address [address] [place] [id number] Care Team Providers Care Gym Teacher Name Role Phone Michael Canales MD Primary Care Provider + Allergies No known active allergies Medications Alcohol Swabs (DropSafe Alcohol Prep) 70 % padsIndications:Ty pe 2 diabetes mellitus with hyperglycemia, with long-term current use of insulin,Long-term insulin use Apply 1 each topically to the appropriate area as directed 3 (Three) Times a Day. 300 each 3 08/05/19 24 Active Blood Glucose Monitoring Suppl (Accu-Chek Esme Plus) w/Device kitIndications:Typ e 2 diabetes mellitus with hyperglycemia, with long-term current use of insulin,Long-term insulin use Use device to check glucose twice daily 1 kit 08/05/19 24 Active rosuvastatin (CRESTOR) 10 MG tabletIndications: Type 2 diabetes mellitus with hyperglycemia, without long-term current use of insulin,Mixed hyperlipidemia Take 1 tablet by mouth Every Evening. 90 tablet 3 08/06/19 25 Active lisinopril (PRINIVIL,ZESTRIL) 40 MG tabletIndications: Essential hypertension Take 1 tablet by mouth Daily. 90 tablet 3 08/06/19 25 Active gemfibrozil (LOPID) 600 MG tabletIndications: Mixed hyperlipidemia Take 1 tablet by mouth 2 (Two) Times a Day. 180 tablet 3 08/06/19 25 Active BD Pen Needle Micro U/F 32G X 6 MM miscIndications:Ty pe 2 diabetes mellitus with hyperglycemia, with long-term current use of insulin USE ONE NEEDLE TWO TIMES A DAY BEFORE MEALS DIRECTED 200 each 3 09/07/19 25 Active Insulin NPH Isophane & Regular (HumuLIN 70/30 KwikPen) (70-30) 100 UNIT/ML suspension pen-injectorIndica tions:Type 2 diabetes mellitus with hyperglycemia, with long-term current use of insulin INJECT 30 UNITS UNDER THE SKIN INTO THE APPROPRIATE AREA DIRECTED 2 (TWO) TIMES A DAY BEFORE MEALS. 60 mL 3 09/11/19 Active glucose blood (Accu-Chek Guide) test stripIndications:T ype 2 diabetes mellitus with hyperglycemia, with long-term current use of insulin,Long-term insulin use Test TID / Dx: E11.65 300 each 3 11/06/19 Active TRUEplus Lancets 33G miscIndications:Ty pe 2 diabetes mellitus with hyperglycemia, with long-term current use of insulin,Long-term insulin use USE 1 LANCET 3 TIMES A DAY DIRECTED / Dx: E11.65 300 each 3 11/06/19 25 Active amLODIPine (NORVASC) 5 MG tabletIndications: Essential hypertension Take 1 tablet by mouth Daily. 90 tablet 1 02/13/20 25 Active empagliflozin (Jardiance) 10 MG tablet tabletIndications: Type 2 diabetes mellitus with hyperglycemia, with long-term current use of insulin,Stage 3b chronic kidney disease Take 1 tablet by mouth Daily. 90 tablet 02/13/20 25 Active famotidine (PEPCID) 20 MG tabletIndications: Gastroesophageal reflux disease without esophagitis TAKE 1 TABLET BY MOUTH EVERY NIGHT NEEDED FOR INDIGESTION 90 tablet 1 02/15/20 25 Active Active Problems Problem Noted Date Diagnosed Date Stage 3b chronic kidney disease 02/06/2024 Type 2 diabetes mellitus wit h hyperglycemia, with long-term current use of insulin 12/24/2021 Assessment & Plan (11/05/2024 11:28 AM EDT): Diabetes is stable Add Jardiance 10 mg for CKD if affordable Assessment & Plan (11/07/2023 8:57 AM EDT): Diabetes control has improved. Patient will continue his current insulin dosing. Microalbuminuria is newly identified and will be repeated at his follow-up assessment in 3 months. eGFR from July is 48.6 Assessment & Plan (06/25/2022 2:04 PM EST): Diabetes is improving with treatment. Continue current treatment regimen. Diabetes will be reassessed in 6 months. Essential hypertension 12/24/2021 Assessment & Plan (11/05/2024 11:28 AM EDT): Hypertension is uncontrolled Medication changes per orders. Dietary sodium restriction. Regular aerobic exercise. Blood pressure will be reassessedin 3 months. Increase Amlodipine to 10 mg daily Assessment & Plan (08/06/2024 10:10 AM EST): Orders: lisinopril (PRINIVIL,ZESTRIL) 40 MG tablet; Take 1 tablet by mouth Daily. amLODIPine (NORVASC) 5 MG tablet; Take 1 tablet by mouth Daily. Assessment & Plan (11/07/2023 8:57 AM EDT): Hypertension is stable and controlled Continue current treatment regimen. Blood pressure will be reassessed in 3 months. Assessment & Plan (06/25/2022 2:04 PM EST): Hypertension is improving with treatment. Continue current treatment regimen. Blood pressure will be reassessed at the next regular appointment. Mixed hyperlipidemia 12/24/2021 Assessment & Plan (08/06/2024 10:10 AM EST): Orders: rosuvastatin (CRESTOR) 10 MG tablet; Take 1 tablet by mouth Every Evening. gemfibrozil (LOPID) 600 MG tablet; Take 1 tablet by mouth 2 (Two) Times a Day. Assessment & Plan (08/06/2024 10:10 AM EST): Orders: rosuvastatin (CRESTOR) 10 MG tablet; Take 1 tablet by mouth Every Evening. gemfibrozil (LOPID) 600 MG tablet; Take 1 tablet by mouth 2 (Two) Times a Day. History of lymphoma 12/24/2021 Class 1 obesity due to exces s calories with serious comorbidity and body mass index (BMI) of 32.0 to 32.9 in adult 12/24/2021 Assessment & Plan (06/25/2022 2:04 PM EST): Patient's (Body mass index is 30.83 kg/m .) indicates that they are obese (BMI >30) with health conditions that include hypertension and diabetes mellitus . Weight is improving with treatment. BMI is is above average; BMI management plan is completed. We discussed increasing exercise. Encounters Date Type Department Care Team Description 02/28/2025 9:45 AM EDT Office Visit [facility] [address] [place] [address] Michael Canales MD Mechanical low back pain (Primary Dx) 02/28/2025 Travel 02/14/2025 Refill [facility] [address] [place] [address] Michael Canales MD Gastroesophageal reflux disease without esophagitis 02/12/2025 10:00 AM EDT Office Visit [facility] [address] [place] [address] Michael Canales MD Type 2 diabetes mellitus with hyperglycemia, with long-term current use of insulin (Primary Dx); Stage 3b chronic kidney disease; Essential hypertension 02/12/2025 Travel from Last 3 Months Immunizations Immunization Administration Dates Next Due Arexvy (RSV, Adults 60+ yrs) 08/20/2024 COVID-19 (GLENN) 05/13/2021,09/17/2020 COVID-19 (MODERNA) BIVALENT 12+YRS 04/28/2022 Fluzone >6mos 04/04/2024 Fluzone (or Fluarix & Flulaval for VFC) >6mos ,04/28/2022 Fluzone High-Dose 65+YRS 04/22/2016 Influenza, Unspecified 04/28/2022 Pneumococcal Conjugate 20-Valent (PCV20) 024 Pneumococcal, Unspecified 10/20/2015 Shingrix 02/12/2025 Td (TDVAX) 09/12/1996 Family History Medical History Relation Name Comments Arthritis Father No Known Problems Mother Relation Name Status Comments Father Mother Social History Tobacco Use Types Packs/Day Years Used Date Smoking Tobacco: Some Days Cigars Smokeless Tobacco: Former Chew Quit: 1999 Tobacco Cessation:Ready to Q uit: Not Asked; Counseling Given: Not Answered Alcohol Use Standard Drinks/Week Comments Not Currently 0 (1 standard drink = 0.6 oz pur e alcohol) PHQ-2 Answer Date Recorded Retired PHQ-9: Brief Depression Severity Measure Score 0 12/28/2022 PHQ-2 Answer Date Recorded Patient Health Questionnaire-2 Score 0 08/06/2024 Sex and Gender Information Value Date Recorded Sex Assigned at Not on file Legal Sex Male 12:14 PM EDT Gender Identity Not on file Sexual Orientation Not on file Last Filed Vital Signs Vital Sign Reading Time Taken Comments Blood Pressure 140/80 02/28/2025 9:30 AM EDT Pulse 82 02/28/2025 9:30 AM EDT Temperature 36.3 C (97.3 F) 02/28/2025 9:30 AM EDT Respiratory Rate 20 02/28/2025 9:30 AM EDT Oxygen Saturation 100% 02/28/2025 9:30 AM EDT Inhaled Oxygen Concentration - - Weight 81.2 kg (179 lb) 02/28/2025 9:30 AM EDT Height 163.8 cm (5' 4.49 ) 02/28/2025 9:30 AM ED T Body Mass Index 30.26 02/28/2025 9:30 AM EDT Plan of Treatment Upcoming Encounters Date Type Department Care Team (Late st Contact Info) Description 08/16/2025 10:45 AM EST Office Visit [facility] [address] [facility] [address] [place] [phone] Michael Canales MD [address] [address] Health Maintenance Due Date Last Done Comments DIABETIC EYE EXAM 11/07/1955 TDAP/TD VACCINES (2 - Tdap) 09/12/2006 09/12/1996 HEPATITIS C SCREENING 12/24/2021 INFLUENZA VACCINE 02/08/2025 04/04/2024, , 04/28/2022, Additional history exists COVID-19 Vaccine ( - 2023-2 5 season) 2025 04/04/2024, 05/26/2023, 04/28/2022, Additional history exists ZOSTER VACCINE (2 of 2) 04/09/2025 02/12/2025 ANNUAL WELLNESS VISIT 08/06/2025 08/06/2024 , 08/06/2024, 07/18/2023, Additional history exists DIABETIC FOOT EXAM 08/06/2025 08/06/2024, 0 08/06/2024, 08/06/2024, Additional history exists LIPID PANEL 08/06/2025 08/06/2024, 12/24/2021 URINE MICROALBUMIN-CREATININ E RATIO (uACR) 08/06/2025 08/06/2024 HEMOGLOBIN A1C 08/15/2025 02/12/2025, 10/10, 08/06/2024, Additional history exists COLONOSCOPY Discontinued 05/23/2019, 05/22/2019 COLORECTAL CANCER SCREENING Discontinued Pneumococcal Vaccine 50+ Completed 11/07/2023, 10/09 RSV Vaccine - Adults Completed 08/20/2024 COLOGUARD Discontinued COLON CANCER SCREENING 5 YEA R SIGMOIDOSCOPY Discontinued CT COLONOGRAPHY Discontinued FECAL OCCULT BLOOD TEST Discontinued FIT Testing (1 year) Discontinued Procedures Procedure Name Priority Date/Time Associated Diagnosis Comments POCT GLYCOSYLATED HEMOGLOBIN (HGB A1C) Routine 02/12/2025 10:10 AM EDT Type 2 diabetes mellitus with hyperglycemia, with long-term current use of insulin POCT MICROALBUMIN Routine 08/06/2024 9:5 0 AM EST Type 2 diabetes mellitus with hyperglycemia, without long-term current use of insulin LIPID PANEL Routine 08/06/2024 9:44 AM EST Type 2 diabetes mellitus with hyperglycemia, without long-term current use of insulin SCANNED - COLONOSCOPY 05/23/2019 from Last 3 Months or Most Recently Relevant to Health Maintenance Results * (ABNORMAL) POC Glycosylated Hemoglobin (Hb A1C) (02/12/2025 10:10 AM EDT) Hemoglobin A1C 7.3(A) 4.5 - 5.7 % [facility] Lot Number [id number] [facility] Expiration Date 09 21 2026 [facility] Blood 02/12/2025 10:1 0 AM EDT Michael Canales MD POINT OF CARE TEST ORDER SHAMIKA Final Result Performing Organization Address City/[facility]/ZIP Co de Phone Number [facility]
[address] [place] [id number], * (ABNORMAL) POC Microalbumin (08/06/2024 9:50 AM EST) Microalbumin, Urine 150 mg/L [facility] Creatinine, Urine 100 mg/dL [facility] Comment:A:C >300 mg/g high a bnormal Lot Number [id number] [facility] Expiration Date 06/09/2025 [facility] Microalbumin/Cr eatinine Ratio > 300 mg/g [facility] Urine 08/06/2024 9:50 AM EST Michael Canales MD POINT OF CARE TEST ORDER SHAMIKA Edited Result - Final Performing Organization Address [facility] Co de Phone Number [facility]
[address] [place] [id number], * (ABNORMAL) Lipid Panel (08/06/2024 9:44 AM EST) Total Cholesterol 104 0 - 200 mg/dL [facility] Comment: Cholesterol Reference Ranges (U.S. Department of Health and Human Services ATP III Classifications) Desirable <200 mg/dL Borderline High 200-239 mg/dL High Risk >240 mg/dL Triglyceride Reference Ranges (U.S. Department of Health and Human Services ATP III Classifications) Normal <150 mg/dL Borderline High 150-199 mg/dL High 200-499 mg/dL Very High >500 mg/dL HDL Reference Ranges (U.S. Department of Health and Human Services ATP III Classifications) Low <40 mg/dl (major risk factor for CHD) High >60 mg/dl ('negative' risk factor for CHD) LDL Reference Ranges (U.S. Department of Health and Human Services ATP III Classifications) Optimal <100 mg/dL Near Optimal 100-129 mg/dL Borderline High 130-159 mg/dL High 160-189 mg/dL Very High >189 mg/dL LDL is calculated using the NIH LDL-C calculation. Triglycerides 156(H) 0 - 150 mg/dL [facility] HDL Cholesterol 25(L) 40 - 60 mg/dL [facility] VLDL Cholesterol [place] 27 5 - 40 mg/dL [facility] LDL Chol Calc (NIH) 52 0 - 100 mg/dL [facility] Blood 08/06/2024 9:44 AM EST 08/06/2024 Narrative [facility] - 08/07/2024 3:07 AM EST Performed at: [address] [place] [id number] Model Technician: Abdi Ramirez MD, Phone: [phone] Patient Fasting: Y Michael Canales MD LAB BLOOD ORDERABLES Fin al Result [facility] [address] [place] [address], [place] [phone] [facility] [address] [place] [address], [place] [phone] * SCANNED - COLONOSCOPY (05/23/2019) Michael Canales MD CHART REVIEW TABS Fin al Result from Last 3 Months or Most Recently Relevant to Health Maintenance Insurance [employer] [id number] [employer] HMO Advance Directives Documents on File Type Date Recorded 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
--- OUTSIDE RECORDS SUMMARY | 2025-05-06 06:55 | XMS_ITS | Data Portability ---
Author Organization [facility] SHANITA WilcoxS [place] Address [address] [facility] [address] [facility] [place] [address] Care Team Providers Care Manager Compensation Name Role Phone NATHANIEL MARTEL Referring Provider CARLYN RICHARDS [employer] Assessment No assessment recorded. Plan of Treatment Reminders Order Date Submit Date Provider Last Modified By Organization Details Last Modified Time Details Appointments None recorded. Lab surgical pathology study 2023 024 [facility], [address] [place] [address], [phone], 11:49:42 Referral None recorded. Procedures None recorded. Surgeries None recorded. Imaging None recorded. Medication Orders None recorded. Patient TargetsNo targets recorded. Patient Instructions Encounter Date Encounter Id Patient Instructions Last Modified By Organization Details Last Modified Time 10/16/2024 [id number] Pt deferred FTSG today. Continue wound care as discussed and Fup in 3 weeks. [email or web address] Not available 10/16/2024 20:52:08 Reason for Referral None Reported. Results Created Date Observation Date Name Description Value Unit Range Abnormal Flag Note LastModifiedBy Organization Detail LastModifiedTime 06/12/2006/12/2024 SURGI JOEY surgical SEE BELOW abnormal [place] topat holog y Repor t NAME: WILLIAN HOUSER PATH: [id number] PROCE DURE DATE: 06/12 SIGNO UT DATE: 06/13 Copy to: Diagn osis: Right Nasal Sidew all - BASAL CELL CARCI NOMA Comme nt: The perip heral and deep florencio ns are invol hernan with tumor . AJCC: T1, Nx, Mx SOURC E OF SPECI MEN: SKIN, R NASAL SIDEW ALL CLINI JOEY INFOR MATIO N: R/O: BCC. Gross Descr iptio n: The speci men consi sted of a banuelos fragm ent which was bisec cheyanne and measu red 7 x 5 x 1 mm. All submi tted in one casse tte. Micro scopi c Descr iptio n: Nests and aggre arriaza of immat ure basal oid epith elial cells with perip heral palis ading are prese nt in the dermi s. MARIO FULTON MD Zulema d Out Date: 06/13 11:49 1 Not Available [facility] [address] [facility] [place], [phone], 06/13/2024 11:49:42 Result Notes None recorded. Procedures Surgical History Date Name Laterality Status Provider Name and Address Organization Details Recorded Time 06/12/2024 DAK - Cryo AK completed [facility] 06/12/2024 09:05:01 06/12/2024 Blade Biopsy completed [facility] 06/12/2024 09:04:01 Imaging Results None recorded. Procedure Notes None recorded. Medical Equipment None Reported. Allergies No known drug allergies Medications Name Sig Start Date Stop Date Status Note LastModified by Organization Details LastModified Time metformin 500 mg tablet Two times a day active Frequency: bid;Alt Frequency: with food;Medic ation Descriptio n: metformin; Dosage:1; Route:oral ; refills:5; Quantity:6 0 tablet Not Available Not Available Not Available lisinopril 20 mg tablet Bedtime active Duration: 30 days;Frequ ency: hs;Medicat ion Descriptio n: lisinopril ; Dosage:1; Route:oral ; refills:5; Quantity:3 0 tablet Not Available Not Available Not Available Zantac 15 mg/mL oral syrup Two times a day active Duration: 10 days;Frequ ency: bid;Medica tion Descriptio n: ranitidine ; Route:oral ; refills:0; Quantity:8 4 syrup Not Available Not Available Not Available Actos 15 mg tablet Daily active Duration: 10 days;Frequ ency: daily;Medi cation Descriptio n: pioglitazo ne; Dosage:1; Route:oral ; refills:0; Quantity:3 0 tablet Not Available Not Available Not Available doxycyclin e hyclate 100 mg tablet Take 1 tablet twice a day by oral route with meal(s) for 5 days. 2024 active [place] per organ Not Available Not Available Not Available Zetia 10 mg tablet active Medication Descriptio n: ezetimibe; Route:oral ; refills:0 Not Available Not Available Not Available insulin admin supplies active Not Available Not Available Not Available Byetta active Medication Descriptio n: exenatide; Route:subc utaneous; refills:0 Not Available Not Available Not Available Vitals None Recorded Social History Question Answer Notes LastModified by Organizat ion Details LastModified Time Tobacco Smoking Status Never Smoker Francisco Merrill [facility] 06/12/2024 08:46:04 Sunscreen Use? No [email or web address] Informatio n not available 06/12/2024 Tanning Bed Use No [email or web address] Informati on not available 06/12/2024 Are You Or Trying To Become ? No [email or web address] Information not available 06/12/2024 Are You On Control? No [email or web address] Information not available 06/12/2024 Are You ? No [email or web address] Information not available 06/12/2024 What Was The Date Of Your Most Recent Tobacco Screening? 06/12/2024 [email or web address] Information not available 06/12/2024 Has Tobacco Cessation Counseling Been Provided? No Information not available 06/12/2024 Sex: Unknown Functional Status Question Answer Note LastModified by Organizat ion Details LastModified Time Do you use any illicit or recreational drugs? No [email or web address] Information not available 06/12/2024 Do you or have you ever used any other forms of tobacco or nicotine? No [email or web address] Information not available 06/12/2024 What is your level of alcohol consumption? None Information not available 06/12/2024 Mental Status None recorded. Family History Nothing Reported. Medical History No medical history recorded. Past Encounters Encounter ID Performer Location Encounter Start Date Encounter Closed Date Diagnosis/Indication Diagnosis SNOMED-CT Code Diagnosis ICD10 Code Diagnosis IMO Codes Diagnosis Note [id number] MARJ SAMANIEGO [address] [address] 06/12/2024 08:37:33 06/12/2024 09:15:52 Neoplasm of uncertain behavior of skin 66581611 D48.5 The etiology of lesion(s) discussed. Biopsy recommende d. Will call pt with results or post to portal if benign. Actinic keratosis 007 L57.0 The nature of the diagnosis was explained. Pre-cancer ous.Will treat with LN2.F/u if treated lesions persist. Multiple b enign melanocytic nevi [id number] D22.5 L81.4 D18.01 L82.1 The benign nature of keratoses and lentigines was discussed with the patient.Colvin n protection with SPF 30 broad spectrum sunscreen and protective gear discussed. Look for physical concepcion sunscreens with at least SPF 30 containing zinc oxide or titanium dioxide as active ingredient . Patient instructed to call if any suspicious lesions are noted. Pnt declined full skin exam today. [id number] SUSANNE ARAIZA, DO [place] [id number] 09/26/2024 09:07:11 09/28/2024 10:31:25 [id number] SUSANNE ARAIZA, DO [address] [address] 10/16/2024 11:30:03 10/17/2024 13:38:11 [id number] SUSANNE ARAIZA, DO [address] [address] 11/07/2024 08:26:29 2024 05:24:18 History of malignant neoplasm of skin [id number] Z85.828 No evidence of recurrence . Discussed risk of recurrence and new skin cancers, so regular self exam and profession al skin checks are recommende d. Sun protection with broad spectrum SPF 30 sunscreen and broad-brim med hat is recommende d. Sun protection with SPF 30 broad spectrum sunscreen and protective gear discussed. Postoperative visit [id number] Z09 Scar [id number] L90.5 Dermabrasi on was performed in the __R nasal sidewall__ _ to improve cosmetic appearance . Expectatio ns for before, during, and after the treatment were discussed. Verbal consent was given and the area was numbed with __1.5 ml of lidocaine with epinephrin e ___. Dermabrasi on was performed with dermabrasi on sheet followed by aluminum chloride for hemostasis .Patient tolerated well. Vaseline and a light bandage was applied. Appt made for pt to follow up in 3 weeks on November 28, @ 5836. [id number] SUSANNE ARAIZA, DO [address] [address] 11/28/2024 07:51:27 11/29/2024 04:49:22 History of malignant neoplasm of skin [id number] Z85.828 No evidence of recurrence . Discussed risk of recurrence and new skin cancers, so regular self exam and profession al skin checks are recommende d. Sun protection with broad spectrum SPF 30 sunscreen and broad-brim med hat is recommende d. Sun protection with SPF 30 broad spectrum sunscreen and protective gear discussed. Postoperative visit 1836 [id number] Z09 Scar [id number] L90.5 Site healing well s/p 1st dermabrasi on session.No signs of infection present. Patient states there has been no pain, drainage, or bleeding present at site. Debridemen t performed to encourage proper wound healing. Petroleum jelly and bandage applied on site prior to patient leaving the clinic. Patient educated to follow up as needed with questions/ concerns. Health Concerns Section Related Observation LastModified by Organization Detai ls LastModified Time None Recorded Concern Status LastModified by Organization Details LastModified Time None Recorded Advance Directives Directive None Recorded Payers Insurance Date Sequence Insurance Name Policy Number Policy Mariee Covered Member ID Mariee Member ID Guarantor Name 11/25/2024 1 [place]MEDICARE REPLACEMENT HMO) [id number] Willian Reyes [id number] Willian Reyes Notes Date Note Type Note Provider Name and Address Organization Details Recorded Time 06/12/2024 text/html ROS as noted in the HPI I have a spot I want looked at.Location: NoseDuration: 4 monthsReports: This spot will not heal. It keeps scabbing over. MARJ SAMANIEGO [address] [place], [address], [facility] 06/12/2024 12:55:00 10/16/2024 text/html Patient presents for full thickness skin graft on the right nasal sidewall s/p mohs surgery on 09/26/24. Today, he states he is very happy with the results and defers FTSG and would like to continue to allow it to heal by second intention SUSANNE MARINELLI DO [address] [place] [address], [phone] 10/16/2024 20:52:18 11/07/2024 text/html ROS as noted in the HPI Patient presents for a 3 week delayed full thickness skin graft follow up for the R nasal sidewall from MOHs performed on 09/26/24, treating a BCC. At previous follow up, patient's wound was in the appropriate stage of healing but was not fully healed. Patient was instructed to continue wound care and to follow up in 3-4 weeks. Today, he states he is doing well with no issues. SUSANNE MARINELLI DO [address] [place] [address], [phone], [facility] 11/26/2024 17:03:20 11/28/2024 text/html ROS as noted in the HPI Patient presents for a 3 week granulation follow up for the right nasal sidewall from Mohs performed on 09/26/24, treating a basal cell carcinoma. At previous follow up, patient's wound was in the appropriate stage of healing but was not fully healed. Patient was instructed to continue wound care and to follow up in 3-4 weeks. Patient had been offered a delayed full thickness skin graft but declined, dermabrasion was performed on 11/07/24. Since then, the site has been healing well with no issues. SUSANNE MARINELLI DO [address] [place], [address], [facility] 11/28/2024 15:53:38
[2025-05-06 07:47] LABS: Hematocrit 42.0 % (42.0-52.0); Hemoglobin 14.5 g/dL (14.1-18.0); Immature Granulocytes % 0.3 %; Mean Corpuscular HGB Conc 34.5 g/dL (31.8-35.4); Mean Corpuscular Hemoglobin 30.0 pg (27.0-31.2); Mean Corpuscular Volume 87.0 fl (80-94); Nucleated Red Blood Cells % 0 %; Platelet Count 145 K/mm3 (142-424); Red Blood Count 4.83 M/mm3 (4.60-6.20); Red Cell Distribution Width-SD 45.4 fL; White Blood Count 7.6 K/mm3 (4.8-10.8)
[2025-05-06 08:26] LABS: Alanine Aminotransferase 17 U/L (12-78); Albumin Level 3.4 g/dl (3.5-5.0); Albumin/Globulin Ratio 1.1 (1.1-1.8); Alkaline Phosphatase 69 U/L (38-126); Anion Gap 13.4 mEq/L (5-15); Aspartate Amino Transferase 23 U/L (17-59); Bilirubin,Total 1.0 mg/dl (0.2-1.3); Blood Urea Nitrogen 25 mg/dl (9-20); Calcium 9.2 mg/dl (8.4-10.2); Carbon Dioxide 23 mmol/L (22.0-30.0); Chloride 103 mmol/L (98-107); Creatinine,Serum 1.70 mg/dl (0.66-1.25); Estimated Glomerular Filt Rate 39 ml/min (>60); GFR (African American) 48 ML/MIN (>60); Globulin 3.0 g/dL (1.3-3.2); Glucose 169 mg/dl (74-100); Potassium 4.4 mmoL/L (3.5-5.1); Sodium 135 mmol/L (136-145); Total Protein,Serum 6.4 g/dl (6.3-8.2)
== END 2025-05-06 23:59 | disposition home or self-care (01) ==
LOC: LAB 06:53
PROVIDERS: PCP Family Medicine; Visit Provider Internal Medicine Medical Oncology
DX: Z85.72 Personal history of non-Hodgkin lymphomas (principal)
CPT/HCPCS: 36415; 80053; 85025